=== PATIENT | male | born 1940 | race Caucasian/White ===

== ENCOUNTER 2020-06-16 15:03 | Emergency (ER) | payer MEDICARE, OTHER ==
[2020-06-16] MEDS ORDERED: Tamsulosin 0.4 MG Cap.ER PO ONE (16:19)
--- NOTE | 2020-06-16 16:19 | EDM.PDOC ---
ED HPI GENERAL MEDICAL PROBLEM - General Chief Complaint: Genitourinary Problem Stated Complaint: [facility] Time Seen by Provider: 06/16/20 16:05 Source of Information: Reports: Patient, RN Notes Reviewed History Limitations: Reports: No Limitations - History of Present Illness INITIAL COMMENTS - FREE TEXT/NARRATIVE: Patient is an 79-year-old male who presents to the ED for the evaluation of difficulty voiding and stooling. Patient states that he had back surgery, performed on June 13, he states that he was not able to void while he was in the hospital for that surgery. He notes that he was given 1 dose of Flomax, and this seemed to help him urinate. Patient notes that he does void, but dribbles just a little bit at a time, and does not feel that he is emptying completely. Patient also states that his been taking narcotic pain medications, due to the back surgery and feels like he might be getting constipated, as he has not had regular bowel movements. He also states he has not had much of an appetite. Patient has been utilizing Colace, as a stool softener, but does not seem to think that this is providing much for bowel movement either. His primary care provider is Dr. Najera. He denies any fever/chills, cough/shortness of breath, nausea/vomiting/diarrhea. Patient notes a recent prior hernia surgery as well that is healing appropriately. Lower Back Pain Score (Numeric/FACES): 2 - Related Data Allergies Allergy/AdvReac Type Severity Reaction Status Date / Time hydrocodone Allergy Hives Verified 06/16/20 15:14 Home Meds: Home Meds Tamsulosin [Tamsulosin 24 Hr] 0.4 mg PO DAILY #30 cap.er 06/16/20 [Rx] Past Medical History HEENT History: Reports: Cataract, Impaired Vision Cardiovascular History: Reports: High Cholesterol, Hypertension - Past Surgical History GI Surgical History: Reports: Hernia Repair/Other Musculoskeletal Surgical History: Reports: Knee Replacement, Other (See Below) Other Musculoskeletal Surgeries/Procedures:: lower lumbar surgery for spinal stenosis 06/13/2020 Social & Family History - Family History Family Medical History: Noncontributory - Tobacco Use Smoking Status *Q: Never Smoker Second Hand Smoke Exposure: No ED ROS GENERAL - Review of Systems Review Of Systems: Comprehensive ROS is negative, except as noted in HPI. ED EXAM, RENAL/ - Physical Exam Exam: See Below Exam Limited By: No Limitations General Appearance: Alert, WD/WN, No Apparent Distress Respiratory/Chest: No Respiratory Distress, Lungs Clear, Normal Breath Sounds, No Accessory Muscle Use, Chest Non-Tender Cardiovascular: Normal Peripheral Pulses, Regular Rate, Rhythm, No Edema, No Murmur GI/Abdominal: Normal Bowel Sounds, Soft, Non-Tender, No Distention, No Mass Extremities: Normal Inspection, Normal Capillary Refill Neurological: Alert, Oriented, Normal Cognition, No Motor/Sensory Deficits Psychiatric: Normal Affect, Normal Mood Skin Exam: Warm, Dry, Intact, Normal Color, No Rash Course - Vital Signs Last Recorded V/S: Last Vital Signs Temp 98.4 F 06/16/20 15:09 Pulse 71 06/16/20 15:09 Resp 16 06/16/20 15:09 BP 141/47 H 06/16/20 15:09 Pulse Ox 96 06/16/20 15:09 - Orders/Labs/Meds Orders: Active Orders 24 hr Category Date Time Status Bladder Scan [RC] ASDIRECTED Care 06/16/20 15:18 Active Meds: Medications Discontinued Medications Generic Name Dose Route Start Last Admin Trade Name Azarq PRN Reason Stop Dose Admin Tamsulosin HCl 0.4 mg 06/16/20 16:19 06/16/20 17:00 Flomax PO 06/16/20 16:20 0.4 mg ONETIME ONE Administration - Re-Assessments/Exams Free Text/Narrative Re-Assessment/Exam: 06/16/20 16:26 Patient's bladder scan revealed 55 mL of urine within his bladder. He will be given a dose of Flomax, to help provide a good urinary stream, a upright abdomen x-ray will be taken, to see if we can identify the stool/gas pattern, to determine whether or not he is constipated. 06/16/20 17:27 Abdomen x-ray demonstrates no increased stool throughout the colon, skin tamai are present, otherwise degenerative disc change was noted. No other acute abnormalities were appreciated. I did go over general recommendations with the and patient, they will take the Flomax, and follow-up with his primary care provider as needed. Departure - Departure Time of Disposition: 17:20 Disposition: Home, Self-Care 01 Condition: Good Clinical Impression: Urinary retention due to benign prostatic hyperplasia - Discharge Information *PRESCRIPTION DRUG MONITORING PROGRAM REVIEWED*: No *COPY OF PRESCRIPTION DRUG MONITORING REPORT IN PATIENT JUJU: No Prescriptions: Tamsulosin [Tamsulosin 24 Hr] 0.4 mg PO DAILY #30 cap.er Instructions: Acute Urinary Retention, Male, [id number] Forms: ED Department Discharge Additional Instructions: You were evaluated in the ER today regarding your inability to urinate, or have a bowel movement. Your work-up in the ER included an abdomen x-ray, and a bladder scan. You had only 55 mL of urine within your bladder, which is just a little bit than normal physiological amount for 1 hour time period. The body usually creates urine at a rate of 30 mL/h. Your abdomen x-ray demonstrated not a lot of stool within your colon, so you are not constipated. Please continue to take the stool softeners, and or a laxative at home, while you are using the narcotic pain medications for your back surgery. You were given a prescription for Flomax, please take 1 tab daily to help you urinate. You will need to follow-up with your regular provider for continuation of this medication if you find that it is helpful. Please go home and read your discharge note from your surgeon, if he does not specifically say so, you can use ibuprofen (Advil, Motrin) for pain relief. 600 mg every 6 hours should work, but do not exceed 3200 mg ibuprofen in a 24-hour time span. Please return to the ER at any time if your symptoms change or worsen. Sepsis Event Note (ED) - Evaluation Sepsis Screening Result: No Definite Risk - Focused Exam Vital Signs: Vital Signs Temp Pulse Resp BP Pulse Ox 06/16/20 15:09 98.4 F 71 16 141/47 H 96 - My Orders Last 24 Hours: My Active Orders 06/16/20 15:18 Bladder Scan [RC] ASDIRECTED - Assessment/Plan Last 24 Hours: My Active Orders 06/16/20 15:18 Bladder Scan [RC] ASDIRECTED
--- NOTE | 2020-06-16 17:25 | CR ---
Abdomen: Supine view of the abdomen was obtained. Comparison: No prior abdominal x-ray. Skin tamia are present. Degenerative change with disc space narrowing and endplate osteophytes are noted within the spine. Joint space narrowing noted within the right hip. Bowel gas pattern is normal. Vascular calcification is seen. Impression: 1. Skin tamia. 2. Other findings which are nonacute as described above. Diagnostic code #2 Study was dictated in MDT
== END 2020-06-16 17:35 | disposition home or self-care (01) ==
LOC: JD.ED 15:03
DX: N40.1 Benign prostatic hyperplasia with lower urinary tract symptoms (principal); R33.8 Other retention of urine; I10 Essential (primary) hypertension; Z88.5 Allergy status to narcotic agent; Z79.899 Other long term (current) drug therapy
CPT/HCPCS: 51798; 74018; 99284; A9270; 99283

== ENCOUNTER 2020-06-17 05:45 | Emergency (ER) | payer MEDICARE, OTHER ==
--- NOTE | 2020-06-17 07:09 | EDM.PDOC ---
ED HPI GENERAL MEDICAL PROBLEM - General Chief Complaint: Genitourinary Problem Stated Complaint: [facility] Time Seen by Provider: 06/17/20 05:50 - History of Present Illness INITIAL COMMENTS - FREE TEXT/NARRATIVE: 79-year-old male presents to the emergency room unable to void he is brought in by EMS. Patient last voided yesterday and then he dribbles a small amount this morning. Patient has a history of back surgery 4 days ago. Patient was seen here yesterday with inability to void and constipation symptoms. Patient has been using opioids following his surgery. The back surgery was for spinal stenosis. Patient also had a hernia repair roughly a month ago. Patient was noted to be mildly hypoxic upon arrival here with O2 saturation 88 to 89%. He denies chest pain chest pressure his main complaint is difficulty voiding and just feels poorly. He has had some constipation however yesterday his x-rays looked okay. Back Pain Score (Numeric/FACES): 3 - Related Data Allergies Allergy/AdvReac Type Severity Reaction Status Date / Time hydrocodone Allergy Severe Hives Verified 06/17/20 05:51 Home Meds: Home Meds Tamsulosin [Tamsulosin 24 Hr] 0.4 mg PO DAILY #30 cap.er 06/16/20 [Rx] Past Medical History HEENT History: Reports: Cataract, Impaired Vision Cardiovascular History: Reports: High Cholesterol, Hypertension - Past Surgical History GI Surgical History: Reports: Hernia Repair/Other Musculoskeletal Surgical History: Reports: Knee Replacement, Other (See Below) Other Musculoskeletal Surgeries/Procedures:: lower lumbar surgery for spinal stenosis 06/13/2020 Social & Family History - Family History Family Medical History: Noncontributory - Tobacco Use Smoking Status *Q: Former Smoker Used Tobacco, but Quit: Yes Month/Year Tobacco Last Used: many years ago - Caffeine Use Caffeine Use: Reports: Coffee - Recreational Drug Use Recreational Drug Use: No ED ROS GENERAL - Review of Systems Review Of Systems: See Below Constitutional: Reports: Weakness, Fatigue HEENT: Reports: No Symptoms Respiratory: Reports: No Symptoms. Denies: Cough, Sputum Cardiovascular: Reports: No Symptoms GI/Abdominal: Reports: Abdominal Pain (Some mild abdominal pain in the area of his hernia repair) : Reports: Urinary Retention Musculoskeletal: Reports: Back Pain Skin: Reports: No Symptoms Neurological: Reports: No Symptoms Hematologic/Lymphatic: Reports: No Symptoms Immunologic: Reports: No Symptoms ED EXAM, RENAL/ - Physical Exam Exam: See Below Exam Limited By: No Limitations General Appearance: Alert, No Apparent Distress Head: Atraumatic, Normocephalic Neck: Normal Inspection, Supple, Non-Tender, Full Range of Motion. No: Lymphadenopathy (L), Lymphadenopathy (R) Respiratory/Chest: No Respiratory Distress, Lungs Clear, Normal Breath Sounds Cardiovascular: Regular Rate, Rhythm, No Edema, No Murmur GI/Abdominal: Normal Bowel Sounds, Soft, Other (Mild tenderness in the left lower quadrant near the incision for his hernia that appears to be healing well) Back Exam: Other (General looks good he had a dressing over his drain site I went ahead and remove this the site is not draining at all he had a small amount of drainage that is old and dry on his bandage this was placed Wednesday after the drain was removed.). No: CVA Tenderness (L), CVA Tenderness (R) Extremities: Normal Inspection Neurological: Slow to Respond, Other (Not certain what his baseline is) Skin Exam: Warm, Dry, Intact EKG INTERPRETATION EKG Date: 06/17/20 Rhythm: NSR [place]: Normal P-Wave: Present QRS: Normal ST-T: Normal QT: Normal Comparison: NA - No Prior EKG EKG Interpretation Comments: Abnormal EKG nonacute Course - Vital Signs Last Recorded V/S: Last Vital Signs Temp 37.2 C 06/17/20 05:48 Pulse 90 06/17/20 05:48 Resp 20 06/17/20 05:48 BP 166/55 H 06/17/20 05:48 Pulse Ox 89 L 06/17/20 05:48 - Orders/Labs/Meds Orders: Active Orders 24 hr Category Date Time Status EKG Documentation Completion [RC] STAT Care 06/17/20 06:47 Active CORONAVIRUS COVID-19 RAPID [MOLEC] Stat Lab 06/17/20 08:34 Received Sodium Chloride 0.9% [Normal Saline] 1,000 ml Med 06/17/20 08:00 Active IV ASDIRECTED Medication Orders Sodium Chloride (Normal Saline) 1,000 mls @ 125 mls/hr IV ASDIRECTED RALPH Labs: Laboratory Tests 06/17/20 06/17/20 06/17/20 Range/Units 05:55 07:00 07:00 WBC (4.23-9.07) K/mm3 RBC (4.63-6.08) M/mm3 Hgb (13.7-17.5) gm/dl Hct (40.1-51.0) % MCV (79.0-92.2) fl MCH (25.7-32.2) pg MCHC (32.2-35.5) g/dl RDW Std Deviation (35.1-43.9) fL Plt Count (163-337) K/mm3 MPV (9.4-12.3) fl Neut % (Auto) (34.0-67.9) % Lymph % (Auto) (21.8-53.1) % [place] % (Auto) (5.3-12.2) % Eos % (Auto) (0.8-7.0) Baso % (Auto) (0.1-1.2) % Neut # (Auto) (1.78-5.38) K/mm3 Lymph # (Auto) (1.32-3.57) K/mm3 [place] # (Auto) (0.30-0.82) K/mm3 Eos # (Auto) (0.04-0.54) K/mm3 Baso # (Auto) (0.01-0.08) K/mm3 Manual Slide Review PT (9.7-12.0) SECONDS INR APTT (22-31) SECONDS D-Dimer, Quantitative 1.12 H (0.19-0.50) mg/L Sodium 134 L (136-145) mEq/L Potassium 4.2 (3.5-5.1) mEq/L Chloride 99 (98-107) mEq/L Carbon Dioxide 25 (21-32) mEq/L Anion Gap 14.2 (5-15) BUN 43 H (7-18) mg/dL Creatinine 1.9 H (0.7-1.3) mg/dL Est Cr Clr Drug Dosing 29.34 mL/min Estimated GFR (MDRD) 34 (>60) mL/min BUN/Creatinine Ratio 22.6 H (14-18) Glucose 159 H (83-115) mg/dL Calcium 8.6 (8.5-10.1) mg/dL Total Bilirubin 0.6 (0.2-1.0) mg/dL AST 21 (15-37) U/L ALT 13 L (16-63) U/L Alkaline Phosphatase 69 (46-116) U/L Troponin I (0.00-0.056) ng/mL Total Protein 6.2 L (6.4-8.2) g/dl Albumin 2.3 L (3.4-5.0) g/dl Globulin 3.9 gm/dL Albumin/Globulin Ratio 0.6 L (1-2) Urine Color Yellow (Yellow) Urine Appearance Slt cloudy H (Clear) Urine pH 5.5 (5.0-8.0) Ur Specific [place] 1.025 (1.005-1.030) Urine Protein 2+ H (Negative) Urine Glucose (UA) Negative (Negative) Urine Ketones Trace H (Negative) Urine Occult Blood Negative (Negative) Urine Nitrite Negative (Negative) Urine Bilirubin Negative (Negative) Urine Urobilinogen 0.2 (0.2-1.0) Ur Leukocyte Esterase Negative (Negative) U Hyaline Cast (Auto) 5-10 H (0-5) /lpf Urine RBC Not seen (0-5) /hpf Urine WBC Not seen (0-5) /hpf Ur Transition Epith Cell 0-5 (0-5) Amorphous Sediment Many H (NOT SEEN) /hpf Urine Bacteria Few (FEW) /hpf Urine Mucus Moderate H (FEW) /hpf 06/17/20 06/17/20 06/17/20 Range/Units 07:00 07:00 07:00 WBC 8.58 (4.23-9.07) K/mm3 RBC 2.59 L (4.63-6.08) M/mm3 Hgb 8.2 L (13.7-17.5) gm/dl Hct 26.2 L (40.1-51.0) % MCV 101.2 H (79.0-92.2) fl MCH 31.7 (25.7-32.2) pg MCHC 31.3 L (32.2-35.5) g/dl RDW Std Deviation 50.5 H (35.1-43.9) fL Plt Count 223 (163-337) K/mm3 MPV 8.4 L (9.4-12.3) fl Neut % (Auto) 64.3 (34.0-67.9) % Lymph % (Auto) 17.4 L (21.8-53.1) % [place] % (Auto) 16.3 H (5.3-12.2) % Eos % (Auto) 1.7 (0.8-7.0) Baso % (Auto) 0.2 (0.1-1.2) % Neut # (Auto) 5.51 H (1.78-5.38) K/mm3 Lymph # (Auto) 1.49 (1.32-3.57) K/mm3 [place] # (Auto) 1.40 H (0.30-0.82) K/mm3 Eos # (Auto) 0.15 (0.04-0.54) K/mm3 Baso # (Auto) 0.02 (0.01-0.08) K/mm3 Manual Slide Review Abnormal smear PT 10.8 (9.7-12.0) SECONDS INR 1.01 APTT 30 (22-31) SECONDS D-Dimer, Quantitative (0.19-0.50) mg/L Sodium (136-145) mEq/L Potassium (3.5-5.1) mEq/L Chloride (98-107) mEq/L Carbon Dioxide (21-32) mEq/L Anion Gap (5-15) BUN (7-18) mg/dL Creatinine (0.7-1.3) mg/dL Est Cr Clr Drug Dosing mL/min Estimated GFR (MDRD) (>60) mL/min BUN/Creatinine Ratio (14-18) Glucose (83-115) mg/dL Calcium (8.5-10.1) mg/dL Total Bilirubin (0.2-1.0) mg/dL AST (15-37) U/L ALT (16-63) U/L Alkaline Phosphatase (46-116) U/L Troponin I < 0.017 (0.00-0.056) ng/mL Total Protein (6.4-8.2) g/dl Albumin (3.4-5.0) g/dl Globulin gm/dL Albumin/Globulin Ratio (1-2) Urine Color (Yellow) Urine Appearance (Clear) Urine pH (5.0-8.0) Ur Specific [place] (1.005-1.030) Urine Protein (Negative) Urine Glucose (UA) (Negative) Urine Ketones (Negative) Urine Occult Blood (Negative) Urine Nitrite (Negative) Urine Bilirubin (Negative) Urine Urobilinogen (0.2-1.0) Ur Leukocyte Esterase (Negative) U Hyaline Cast (Auto) (0-5) /lpf Urine RBC (0-5) /hpf Urine WBC (0-5) /hpf Ur Transition Epith Cell (0-5) Amorphous Sediment (NOT SEEN) /hpf Urine Bacteria (FEW) /hpf Urine Mucus (FEW) /hpf Meds: Medications Generic Name Dose Route Start Last Admin Trade Name Freq PRN Reason Stop Dose Admin Sodium Chloride 1,000 mls @ 125 mls/hr 06/17/20 08:00 Normal Saline IV ASDIRECTED RALPH Discontinued Medications Generic Name Dose Route Start Last Admin Trade Name Freq PRN Reason Stop Dose Admin Sodium Chloride 500 mls @ 999 mls/hr 06/17/20 07:53 06/17/20 08:23 Normal Saline IV 06/17/20 08:23 999 mls/hr .BOLUS ONE Administration - Re-Assessments/Exams Free Text/Narrative Re-Assessment/Exam: 06/17/20 08:04 Case was reviewed with Dr. Garcia who recommends patient be sent back to his facility where he had the surgery as he cannot exclude his urinary retention is not secondary to the surgery. I have called 1 call at [facility] we cannot get a hold of the surgeon we will discuss this with the hospitalist they will call me back. 06/17/20 09:04 Dr. Alves, the neurosurgeon, did get back to me and agreed that the patient should come over to [facility]. The hospitalist Dr. Zaragoza also did get back to me and is happy to accept the patient. However, prior to transfer they would like to know his COVID status but they have a bed for him either way. Did discuss the disposition with him. We will run fluids at this point we both agree that the positive d-dimer is most likely related to this postop status. Over all this gentleman's course is 1 of a gentleman that is several days postop he has been home for 2 days and is not doing very well his is having difficulty caring for him he is developing worsening renal function most likely due to prerenal causes. The patient just does not have the strength to move around, and his does not have the strength to move him adequately. He is noted to be hypoxic but very mildly so this is probably related to needing incentive spirometry decreased activity and not taking adequate breath volumes. He may very well need short-term assisted placement to get back on his feet, and to ensure reasonable rehabilitation. Departure - Departure Time of Disposition: 09:12 Disposition: DC/[facility]fer to [facility] 02 Clinical Impression: Weakness, Acute prerenal azotemia, Postoperative state - Discharge Information Referrals: PCP,None [Ordering Only Provider] - Forms: ED Department Discharge Sepsis Event Note (ED) - Evaluation Sepsis Screening Result: No Definite Risk - Focused Exam Vital Signs: Vital Signs Temp Pulse Resp BP Pulse Ox 06/17/20 05:48 37.2 C 90 20 166/55 H 89 L - My Orders Last 24 Hours: My Active Orders 06/17/20 06:47 EKG Documentation Completion [RC] STAT 06/17/20 08:00 Sodium Chloride 0.9% [Normal Saline] 1,000 ml IV ASDIRECTED 06/17/20 08:34 CORONAVIRUS COVID-19 RAPID [MOLEC] Stat - Assessment/Plan Last 24 Hours: My Active Orders 06/17/20 06:47 EKG Documentation Completion [RC] STAT 06/17/20 08:00 Sodium Chloride 0.9% [Normal Saline] 1,000 ml IV ASDIRECTED 06/17/20 08:34 CORONAVIRUS COVID-19 RAPID [MOLEC] Stat
--- NOTE | 2020-06-17 07:32 | CR ---
Chest: Portable view of the chest was obtained. Comparison: Prior chest x-ray is not available. Heart size is within normal limits for portable technique. Tortuous thoracic aorta is seen. Widening of the upper mediastinum is seen. Minimal atelectasis within the right lung base is seen. Lungs otherwise are clear. Old healed left-sided rib fractures are noted. Osteopenia is also present within the osseous structures. Impression: 1. Findings as noted above. 2. Nothing acute is suspected. Diagnostic code #2 This report was dictated in MDT
[2020-06-17] MEDS ORDERED: Sodium Chloride 0.9% 500 ML IV ONE (07:53)
[2020-06-17] MEDS ORDERED: Sodium Chloride 0.9% 1,000 ML IV SCH (08:00)
[2020-06-17] MEDS ORDERED: HYDROmorphone 0.5 MG/0.5 ML Syringe IVPUSH STA (10:40)
== END 2020-06-17 11:05 ==
LOC: JD.ED 05:45
DX: R53.1 Weakness (principal); R79.89 Other specified abnormal findings of blood chemistry; I10 Essential (primary) hypertension; R94.31 Abnormal electrocardiogram [ECG] [EKG]; Z88.5 Allergy status to narcotic agent; Z87.891 Personal history of nicotine dependence; Z98.890 Other specified postprocedural states; Z20.828 Contact with and (suspected) exposure to other viral communicable diseases
CPT/HCPCS: 36415; 51702; 51798; 71045; 80053; 81001; 84484; 85025; 85379; 85610; 85730; 93005; 96374; 99285; J1170; J7030; U0002; 93010

== ENCOUNTER 2020-06-23 10:10 | Inpatient (IN) | payer MEDICARE, OTHER ==
[2020-06-23] MEDS ORDERED: Acetaminophen 325 MG Tab PO ONE (10:43)
--- NOTE | 2020-06-23 10:48 | EDM.PDOC ---
ED HPI GENERAL MEDICAL PROBLEM - General Chief Complaint: Genitourinary Problem Stated Complaint: urinary complaint Time Seen by Provider: 06/23/20 10:42 Source of Information: Reports: Patient History Limitations: Reports: No Limitations - History of Present Illness INITIAL COMMENTS - FREE TEXT/NARRATIVE: 79-year-old male presents to the ED with chief complaint of just generally not feeling well. He had lower back surgery performed June 13 for spinal stenosis. He states the pain is slowly getting better in his lower back and is using about 2 pain pills a day. Unfortunately a few days after surgery he went into urinary retention required Brownlee catheter placement on June 17. Brownlee catheter remains in place and has been causing a good deal of irritation of the penis and the urethra. Nurses identified that the Brownlee catheter was pulled upwards and above his and waistband putting undue pressure on the penis causing him discomfort and pain. Brownlee catheter was subsequently we readjusted to his right leg and the leg bag will be down on his right lower calf. Patient always identified however in the ED to be febrile with a temperature of 38 degrees. He also gives a history of anorexia and not eating much at all for the last couple of days. He denies any chills. Mild nausea. Feeling lightheaded a bit when he stood up from bed this morning. He has bowels did work a little bit this morning. He has been having troubles with constipation postoperatively while on narcotic pain medication. He denies cough or sputum production. He has had no visitors that could have potentially expose him to COVID. COVID exposure would have occurred while he was in hospital. Urine in the bag does appear cloudy. He does feel dehydrated. Onset: Gradual Onset Date: 06/22/20 (More or less started to feel unwell yesterday.) Duration: Day(s):, Getting Worse Location: Reports: Generalized (Generalized weakness. Loss of appetite) Quality: Reports: Other Severity: Moderate (Generalized weakness) Improves with: Reports: Rest Worsens with: Reports: Other (Feels much worse with movement and getting up. This will cause dyspnea lightheadedness) Context: Reports: Other (He is today 10 days postop L spine surgery for spinal stenosis. He has a Brownlee catheter in place for the last 7 days. This because of development of urinary retention postoperatively.). Denies: Activity (.), Exercise, Lifting, Sick Contact, Trauma Associated Symptoms: Reports: Fever/Chills, Loss of Appetite, Malaise, Nausea/Vomiting, Weakness (Generalized.). Denies: Confusion, Chest Pain, Cough, cough w sputum, Diaphoresis, Headaches, Rash, Seizure, Shortness of Breath, Syncope Treatments [employer]: Reports: Other (see below) (Only prescribed medications.) Penis Pain Score (Numeric/FACES): 8 - Related Data Allergies Allergy/AdvReac Type Severity Reaction Status Date / Time hydrocodone Allergy Severe Hives Verified 06/23/20 10:18 Home Meds: Home Meds Tamsulosin [Tamsulosin 24 Hr] 0.4 mg PO DAILY #30 cap.er 06/16/20 [Rx] Docusate Sodium [Colace] 0 mg PO ASDIRECTED PRN 06/23/20 [History] Fluticasone Propionate 1 spray NASBOTH ASDIRECTED PRN 06/23/20 [History] Levothyroxine 75 mcg PO DAILY 06/23/20 [History] Losartan Potassium 50 mg PO DAILY 06/23/20 [History] Metoprolol Tartrate 100 mg PO BID 06/23/20 [History] Pravastatin [Pravachol] 40 mg PO DAILY 06/23/20 [History] allopurinoL [Zyloprim] 150 mg PO DAILY 06/23/20 [History] amLODIPine [Norvasc] 5 mg PO DAILY 06/23/20 [History] hydroCHLOROthiazide [Hydrochlorothiazide] 25 mg PO DAILY 06/23/20 [History] metFORMIN [Glucophage] 1,000 mg PO BID 06/23/20 [History] oxyCODONE 5 mg PO ASDIRECTED PRN 06/23/20 [History] Past Medical History HEENT History: Reports: Cataract, Impaired Vision Cardiovascular History: Reports: High Cholesterol, Hypertension Genitourinary History: Reports: BPH, Retention, Urinary Psychiatric History: Reports: Depression Endocrine/Metabolic History: Reports: Diabetes, Type II Oncologic (Cancer) History: Reports: Other (See Below) Other Oncologic History: skin CA Dermatologic History: Reports: Other (See Below) Other Dermatologic History: skin CA - Infectious Disease History Infectious Disease History: Reports: Chicken Pox, Measles, Rubella - Past Surgical History GI Surgical History: Reports: Hernia Repair/Other Musculoskeletal Surgical History: Reports: Knee Replacement, Other (See Below) Other Musculoskeletal Surgeries/Procedures:: lower lumbar surgery for spinal stenosis 06/13/2020 Social & Family History - Family History Family Medical History: Noncontributory - Tobacco Use Smoking Status *Q: Never Smoker Second Hand Smoke Exposure: No - Caffeine Use Caffeine Use: Reports: Coffee - Alcohol Use Days Per Week of Alcohol Use: 7 Number of Drinks Per Day: 2 Total Drinks Per Week: 14 - Recreational Drug Use Recreational Drug Use: No - Living Situation & Occupation Living situation: Reports: , with Family Occupation: Retired ED ROS GENERAL - Review of Systems Review Of Systems: See Below Constitutional: Reports: Fever, Malaise, Weakness, Fatigue, Decreased Appetite, Weight Loss HEENT: Reports: Glasses Respiratory: Reports: Shortness of Breath. Denies: Wheezing (On exertion only), Pleuritic Chest Pain, Cough, Sputum, Hemoptysis Cardiovascular: Reports: Blood Pressure Problem, Dyspnea on Exertion (Particular the last few days.), Lightheadedness. Denies: Claudication, Edema (With standing at times.), Orthopnea Endocrine: Reports: Fatigue GI/Abdominal: Reports: Abdominal Pain (Remittent lower abdominal pressure discomfort with a few cramps.), Constipation, Decreased Appetite, Nausea. Denies: Hematemesis, Hematochezia, Stool Incontinence (Comes and goes.), Vomiting : Reports: Other (Brownlee catheter was placed due to acute urinary tension I believe June 16.) Musculoskeletal: Reports: Back Pain (Knees hips neck and shoulders at times. Back pain surgery done 10 days ago due to severe spinal stenosis with relief of lower extremity pain.), Joint Pain Skin: Reports: No Symptoms Neurological: Reports: Dizziness (Standing.), Difficulty Walking (Walking with the aid of a walker.) Psychiatric: Reports: No Symptoms Hematologic/Lymphatic: Reports: No Symptoms Immunologic: Reports: No Symptoms ED EXAM, GENERAL - Physical Exam Exam: See Below Exam Limited By: No Limitations General Appearance: Alert, WD/WN, Mild Distress, Other (Patient appears ill. He is quite warm to palpation nurses recorded temperature at 38 degrees and he feels like slightly warmer than this. Heart rate was 78 and sinus respiratory to 16 with O2 sats of 92% on room air. He was placed on 2 L of oxygen by nasal cannula. BP 147/52.) Eye Exam: Bilateral Eye: Normal Inspection, PERRL Throat/Mouth: Normal Inspection, Normal Oropharynx, Other (Tongue is dry and beefy red in color.) Head: Atraumatic, Normocephalic Neck: No: Carotid Bruit, Lymphadenopathy (L), Lymphadenopathy (R) Respiratory/Chest: No Respiratory Distress, Lungs Clear, Normal Breath Sounds, No Accessory Muscle Use Cardiovascular: Regular Rate, Rhythm, No Edema, No Gallop, No Murmur, No Rub. No: Normal Peripheral Pulses Peripheral Pulses: 2+: Carotid (L), Carotid (R), Posterior Tibial (L), Posterior Tibial (R), Dorsalis Pedis (L), Dorsalis Pedis (R) GI/Abdominal: Soft, Non-Tender, No Organomegaly, Distended (Bowel sounds are slightly hyperactive in all 4 quadrants. Upper abdomen is mildly distended and tympanitic to percussion compatible with aerophagia.), Abnormal Bowel Sounds, Other (He has a linear horizontal incision just to the left of the midline lower abdomen where he had a hernia repaired.) (Male) Exam: Other (Brownlee catheter in position. The end of the penis did not look red or excoriated. No blood appreciated) Back Exam: Other (Patient does have tamia in his midline lower lumbar surgery wound. The wound itself appears to be healing very well with no signs of infection.) Extremities: Normal Inspection, No Pedal Edema Neurological: Alert, Oriented, CN II-XII Intact, Normal Cognition. No: Normal Gait Psychiatric: Flat Affect Skin Exam: Warm, Dry, Intact, Normal Color EKG INTERPRETATION EKG Date: 06/23/20 Time: 11:14 Rhythm: NSR Rate (Beats/Min): 78 Palmer: Normal P-Wave: Present (First-degree AV block.) QRS: Other (There is an RSR prime wave in V1 suggesting right bundle branch block pattern. There is early R wave transition in V2 V3 suggesting right ventricular hypertrophy pattern. Mildly decreased voltage in the limb leads.) QT: Prolonged (Mildly prolonged.) EKG Interpretation Comments: Abnormal ECG Course - Vital Signs Last Recorded V/S: Last Vital Signs Temp 38.0 C 06/23/20 10:10 Pulse 78 06/23/20 10:10 Resp 16 06/23/20 10:10 BP 147/52 H 06/23/20 10:10 Pulse Ox 92 L 06/23/20 10:10 - Orders/Labs/Meds Orders: Active Orders 24 hr Category Date Time Status EKG Documentation Completion [RC] STAT Care 06/23/20 10:44 Active Oxygen Therapy [RC] ASDIRECTED Care 06/23/20 10:50 Active Remove Brownlee Catheter [Urinary Catheter Removal] [RC] Care 06/23/20 12:05 Active PER UNIT ROUTINE Abdomen 1V Flat [CR] Stat Exams 06/23/20 10:53 Taken Chest 1V Frontal [CR] Stat Exams 06/23/20 10:44 Taken CULTURE BLOOD [BC] Stat Lab 06/23/20 10:58 Received CULTURE BLOOD [BC] Stat Lab 06/23/20 11:10 Received CULTURE CATHETER TIP [RM] Stat Lab 06/23/20 12:29 Ordered CULTURE URINE [RM] Stat Lab 06/23/20 11:41 Ordered Dextrose 5%-0.9% NaCl [Dextrose 5%-Normal Saline] 1,000 Med 06/23/20 10:45 Active ml IV ASDIRECTED cefTRIAXone [Rocephin] 2 gm Med 06/23/20 11:45 Active Sodium Chloride 0.9% [Normal Saline] 100 ml IV Q24H Blood Culture x2 Reflex Set [OM.PC] Stat Oth 06/23/20 10:45 Ordered Medication Orders Dextrose/Sodium Chloride (Dextrose 5%-Normal Saline) 1,000 mls @ 250 mls/hr IV ASDIRECTED [facility] Last Admin: 06/23/20 12:27 Dose: 250 mls/hr Documented by: FIOR Ceftriaxone Sodium 2 gm/ (Sodium Chloride) 100 mls @ 200 mls/hr IV Q24H [facility] Last Admin: 06/23/20 12:28 Dose: 200 mls/hr Documented by: FIOR Labs: Laboratory Tests 06/23/20 06/23/20 06/23/20 Range/Units 10:33 10:58 10:58 WBC 15.41 H (4.23-9.07) K/mm3 RBC 2.72 L (4.63-6.08) M/mm3 Hgb 8.5 L (13.7-17.5) gm/dl Hct 27.4 L (40.1-51.0) % MCV 100.7 H (79.0-92.2) fl MCH 31.3 (25.7-32.2) pg MCHC 31.0 L (32.2-35.5) g/dl RDW Std Deviation 49.1 H (35.1-43.9) fL Plt Count 442 H D (163-337) K/mm3 MPV 8.2 L (9.4-12.3) fl Neutrophils % (Manual) 79 H (40-60) % Band Neutrophils % 0 (0-10) % Lymphocytes % (Manual) 12 L (20-40) % Atypical Lymphs % 0 % Monocytes % (Manual) 8 (2-10) % Eosinophils % (Manual) 1 (0.8-7.0) % Basophils % (Manual) 0 L (0.2-1.2) Platelet Estimate Adequate Poikilocytosis 1+ slight Anisocytosis 1+ slight Macrocytosis 2+ moderate RBC Morph Comment Abnormal Sodium 132 L (136-145) mEq/L Potassium 4.2 (3.5-5.1) mEq/L Chloride 97 L (98-107) mEq/L Carbon Dioxide 28 (21-32) mEq/L Anion Gap 11.2 (5-15) BUN 45 H (7-18) mg/dL Creatinine 1.6 H (0.7-1.3) mg/dL Est Cr Clr Drug Dosing 34.85 mL/min Estimated GFR (MDRD) 42 (>60) mL/min BUN/Creatinine Ratio 28.1 H (14-18) Glucose 232 H (83-115) mg/dL Lactic Acid (0.4-2.0) mmol/L Calcium 8.5 (8.5-10.1) mg/dL Magnesium 1.9 (1.8-2.4) mg/dl Total Bilirubin 0.8 (0.2-1.0) mg/dL AST 24 (15-37) U/L ALT 28 (16-63) U/L Alkaline Phosphatase 201 H (46-116) U/L Troponin I < 0.017 (0.00-0.056) ng/mL C-Reactive Protein 14.4 H* (<1.0) mg/dL NT-Pro-B Natriuret Pep (0-450) pg/mL Total Protein 6.9 (6.4-8.2) g/dl Albumin 2.3 L (3.4-5.0) g/dl Globulin 4.6 gm/dL Albumin/Globulin Ratio 0.5 L (1-2) Urine Color Yellow (Yellow) Urine Appearance Slt cloudy H (Clear) Urine pH 5.5 (5.0-8.0) Ur Specific [place] 1.020 (1.005-1.030) Urine Protein 2+ H (Negative) Urine Glucose (UA) Negative (Negative) Urine Ketones Negative (Negative) Urine Occult Blood 2+ H (Negative) Urine Nitrite Negative (Negative) Urine Bilirubin Negative (Negative) Urine Urobilinogen 4.0 H (0.2-1.0) Ur Leukocyte Esterase 3+ H (Negative) Urine RBC 30-40 H (0-5) /hpf Urine WBC >100 H (0-5) /hpf Ur Squamous Epith Cells 0-5 (0-5) /hpf Urine Bacteria Few (FEW) /hpf Urine Mucus Not seen (FEW) /hpf COVID-19 (HANNY) (NEGATIVE) 06/23/20 06/23/20 06/23/20 Range/Units 10:58 10:58 11:20 WBC (4.23-9.07) K/mm3 RBC (4.63-6.08) M/mm3 Hgb (13.7-17.5) gm/dl Hct (40.1-51.0) % MCV (79.0-92.2) fl MCH (25.7-32.2) pg MCHC (32.2-35.5) g/dl RDW Std Deviation (35.1-43.9) fL Plt Count (163-337) K/mm3 MPV (9.4-12.3) fl Neutrophils % (Manual) (40-60) % Band Neutrophils % (0-10) % Lymphocytes % (Manual) (20-40) % Atypical Lymphs % % Monocytes % (Manual) (2-10) % Eosinophils % (Manual) (0.8-7.0) % Basophils % (Manual) (0.2-1.2) Platelet Estimate Poikilocytosis Anisocytosis Macrocytosis RBC Morph Comment Sodium (136-145) mEq/L Potassium (3.5-5.1) mEq/L Chloride (98-107) mEq/L Carbon Dioxide (21-32) mEq/L Anion Gap (5-15) BUN (7-18) mg/dL Creatinine (0.7-1.3) mg/dL Est Cr Clr Drug Dosing mL/min Estimated GFR (MDRD) (>60) mL/min BUN/Creatinine Ratio (14-18) Glucose (83-115) mg/dL Lactic Acid 1.1 (0.4-2.0) mmol/L Calcium (8.5-10.1) mg/dL Magnesium (1.8-2.4) mg/dl Total Bilirubin (0.2-1.0) mg/dL AST (15-37) U/L ALT (16-63) U/L Alkaline Phosphatase (46-116) U/L Troponin I (0.00-0.056) ng/mL C-Reactive Protein (<1.0) mg/dL NT-Pro-B Natriuret Pep 1153 H (0-450) pg/mL Total Protein (6.4-8.2) g/dl Albumin (3.4-5.0) g/dl Globulin gm/dL Albumin/Globulin Ratio (1-2) Urine Color (Yellow) Urine Appearance (Clear) Urine pH (5.0-8.0) Ur Specific [place] (1.005-1.030) Urine Protein (Negative) Urine Glucose (UA) (Negative) Urine Ketones (Negative) Urine Occult Blood (Negative) Urine Nitrite (Negative) Urine Bilirubin (Negative) Urine Urobilinogen (0.2-1.0) Ur Leukocyte Esterase (Negative) Urine RBC (0-5) /hpf Urine WBC (0-5) /hpf Ur Squamous Epith Cells (0-5) /hpf Urine Bacteria (FEW) /hpf Urine Mucus (FEW) /hpf COVID-19 (HANNY) Negative (NEGATIVE) Meds: Medications Generic Name Dose Route Start Last Admin Trade Name Freq PRN Reason Stop Dose Admin Dextrose/Sodium Chloride 1,000 mls @ 250 mls/hr 06/23/20 10:45 06/23/20 12:27 Dextrose 5%-Normal Saline IV 250 mls/hr ASDIRECTED RALPH Administration Ceftriaxone Sodium 2 gm/ 100 mls @ 200 mls/hr 06/23/20 11:45 06/23/20 12:28 Sodium Chloride IV 200 mls/hr Q24H RALPH Administration Discontinued Medications Generic Name Dose Route Start Last Admin Trade Name Freq PRN Reason Stop Dose Admin Acetaminophen 650 mg 06/23/20 10:43 Tylenol PO 06/23/20 10:44 ONETIME ONE Ondansetron HCl 4 mg 06/23/20 11:06 Zofran IVPUSH 06/23/20 11:07 ONETIME ONE - Radiology Interpretation Free Text/Narrative:: 79-year-old male presents to the ED generally not feeling well for the last few days. Patient underwent lumbar spine surgery for relief of spinal stenosis on June 13 in [place]. 2 days later he went into urinary retention and required Brownlee catheter placement. He came to the ED today mostly because of penile discomfort and was found to have his Brownlee catheter pulled upwards over the waist of his pants putting undue pressure on the end of the penis. Brownlee catheter was readjusted and taped to his right leg and then to a leg bag. The urine does appear quite cloudy in appearance. Patient was identified to be febrile with a temperature of 38 degrees and feels slightly warmer than that. He has loss of his appetite. He has been struggling with constipation issues even though he has cut back his pain medicine to twice daily. Concern therefore is possible urinary tract sepsis developing. Septic work-up will be completed. He will have a chest x-ray and 1 view of the abdomen performed to see how extensive his constipation problems are. He has been taking stool softeners but has not been taking MiraLAX powder. He was given Tylenol 650 mg orally for fever relief. We will provide him with Zofran 4 mg IV for nausea relief. IV will be D5 normal saline at 250 mils per hour. - Re-Assessments/Exams Free Text/Narrative Re-Assessment/Exam: 06/23/20 11:39 White count is elevated at 15.41 with a left shift of 79% neutrophils no bands cells reported. Hemoglobin is low at 8.5 with hematocrit of 27.4. MCV is mildly elevated 100.7. Platelet counts 442,000 slightly elevated. The micro shows 1+ poikilocytosis and 1+ anisocytosis and 2+ macrocytosis. Urinalysis shows it to be out a yellow with 2+ proteinuria 2+ occult blood 4+ urobilinogen 3+ leukocyte esterase and 30-40 RBCs per per field and greater than 100 white blood cells per high-power field. Few bacteria seen. Urine culture will be ordered. 06/23/20 11:44 x-ray reveals hyperinflated lung sauer with loss of much of vascular pattern. No pneumothorax identified no pleural effusions. Cardiac silhouette is within normal limits. X-ray of the abdomen shows scattered stool throughout the colon and mixture of air. There is a small bolus of stool at the hepatic flexure and some in the rectal vault. Not felt to be excessive. 06/23/20 12:01 Sodium is 132 with a potassium of 4.2. Chloride is 97 with a bicarb of 28. Anion gap is 11.2. BUN is elevated at 45 with a creatinine of 1.6. GFR is 42 stage III chronic kidney disease. BUN/creatinine ratio is elevated at 28.1. Glucose is 232 lactic acid is 1.1. Calcium is 8.5 magnesium is 1.9. Bilirubin is 0.8 with an AST of 24 and ALT of 28. Alk phosphatase is elevated at 201 troponin I is less than 0.017. C-reactive protein is markedly elevated at 14.4. Total protein is 6.9 with an albumin fraction of 2.3. 06/23/20 12:11 Brownlee catheter to be removed. We will see if he can void on his own volition. It appears the Brownlee catheter was placed when he went back to [facility] in [place] on June 17 and did see his neurosurgeon Dr. Alves Patient cannot remember if there was any difficulties inserting the F oley catheter. He does not void on his own in the next 8 hours he will require replacement of Brownlee catheter. I will discuss the case with on-call hospitalist Dr. Marie with a view to admission to the hospital for urinary tract infection/pyelonephritis Free Text/Narrative Re-Assessment/Exam: 06/23/20 12:30 Dr. Marie is here and seeing the patient in consultation. Plan will be to admit him to the [facility] med surgery floor. Departure - Departure Time of Disposition: 12:32 Disposition: Admitted As Inpatient 64 Condition: Fair Clinical Impression: Upper urinary tract infection, Postoperative pain after spinal surgery, Constipation by delayed colonic transit, Postprocedural urinary retention - Discharge Information *PRESCRIPTION DRUG MONITORING PROGRAM REVIEWED*: Not Applicable *COPY OF PRESCRIPTION DRUG MONITORING REPORT IN PATIENT JUJU: Not Applicable Referrals: Charanjit Najera MD [Primary Care Provider] - Forms: ED Department Discharge Sepsis Event Note (ED) - Evaluation Sepsis Screening Result: No Definite Risk - Focused Exam Vital Signs: Vital Signs Temp Pulse Resp BP Pulse Ox 06/23/20 10:10 38.0 C 78 16 147/52 H 92 L - My Orders Last 24 Hours: My Active Orders 06/23/20 10:44 EKG Documentation Completion [RC] STAT Chest 1V Frontal [CR] Stat 06/23/20 10:45 Dextrose 5%-0.9% NaCl [Dextrose 5%-Normal Saline] 1,000 ml IV ASDIRECTED Blood Culture x2 Reflex Set [OM.PC] Stat 06/23/20 10:50 Oxygen Therapy [RC] ASDIRECTED 06/23/20 10:53 Abdomen 1V Flat [CR] Stat 06/23/20 10:58 CULTURE BLOOD [BC] Stat 06/23/20 11:10 CULTURE BLOOD [BC] Stat 06/23/20 11:41 CULTURE URINE [RM] Stat 06/23/20 11:45 cefTRIAXone [Rocephin] 2 gm Sodium Chloride 0.9% [Normal Saline] 100 ml IV Q24H 06/23/20 12:05 Remove Brownlee Catheter [Urinary Catheter Removal] [RC] PER UNIT ROUTINE 06/23/20 12:29 CULTURE CATHETER TIP [RM] Stat - Assessment/Plan Last 24 Hours: My Active Orders 06/23/20 10:44 EKG Documentation Completion [RC] STAT Chest 1V Frontal [CR] Stat 06/23/20 10:45 Dextrose 5%-0.9% NaCl [Dextrose 5%-Normal Saline] 1,000 ml IV ASDIRECTED Blood Culture x2 Reflex Set [OM.PC] Stat 06/23/20 10:50 Oxygen Therapy [RC] ASDIRECTED 06/23/20 10:53 Abdomen 1V Flat [CR] Stat 06/23/20 10:58 CULTURE BLOOD [BC] Stat 06/23/20 11:10 CULTURE BLOOD [BC] Stat 06/23/20 11:41 CULTURE URINE [RM] Stat 06/23/20 11:45 cefTRIAXone [Rocephin] 2 gm Sodium Chloride 0.9% [Normal Saline] 100 ml IV Q24H 06/23/20 12:05 Remove Brownlee Catheter [Urinary Catheter Removal] [RC] PER UNIT ROUTINE 06/23/20 12:29 CULTURE CATHETER TIP [RM] Stat
[2020-06-23] MEDS ORDERED: Ondansetron 4 MG/2 ML SDV IVPUSH ONE (11:06)
[2020-06-23] MEDS ORDERED: cefTRIAXone 2 GM in Sodium Chloride 0.9% 100 ML IV SCH (11:45)
[2020-06-23] MEDS: Dextrose 5%-0.9% NaCl 1,000 ML IV SCH ×2 (12:27→17:43)
[2020-06-23] MEDS ORDERED: Ondansetron 4 MG/2 ML SDV IV PRN (13:10)
--- NOTE | 2020-06-23 13:14 | CR ---
Abdomen: Supine view of the abdomen was obtained. Comparison: No prior abdominal x-ray. Scattered disc space narrowing and degenerative endplate spurring is seen within the spine. Midline surgical clips are seen. Bowel gas pattern is normal. Mild vascular calcification is seen. Impression: 1. Degenerative change as noted above. Skin tamia. 2. Nothing acute seen on supine abdominal x-ray. Diagnostic code #2 This report was dictated in MDT
[2020-06-23] MEDS ORDERED: 50% Dextrose in Water 50 ML Syringe IVPUSH PRN (13:22)
[2020-06-23] MEDS ORDERED: hydrALAZINE 20 MG/ML SDV IVPUSH PRN (13:22)
--- NOTE | 2020-06-23 13:29 | CR ---
Chest: Chest: AP view of the chest was obtained. Comparison: No prior chest x-ray. Heart size is normal. Tortuous thoracic aorta is seen. Lungs show no acute parenchymal change. Degenerative endplate spurring is noted within the spine. Old healed left upper rib fractures are seen. No acute osseous finding is seen. Impression: 1. Nothing acute is appreciated on AP chest x-ray. Diagnostic code #2 This report was dictated in MDT
--- NOTE | 2020-06-23 13:30 | PCM.HP.2 ---
H&P History of Present Illness - General Date of Service: 06/23/20 Admit Problem/Dx: Admission Diagnosis/Problem Admission Diagnosis/Problem Upper urinary tract infection - History of Present Illness Initial Comments - Free Text/Narative: This is an 79 year old male who came to the ED complaining of worsening dysuria. As per patient he underwent spinal stenosis surgery on 06/13, discharged from the hospital in [place] on 06/15. Came home on 06/16 and started having difficulty voiding for which he came to the ED for evaluation at that point he was given Flomax and discharged home. On 06/17 symptoms were not improving and getting worse for which he came back to the ED for evaluation, he was transferred to [place] where a Brownlee catheter was placed and patient was discharged home. He started having intermittent chills, with a fever, fatigue, malaise, decreased oral intake (has been declining steadily since surgery) as well as initial symptoms. Described pain in urethra during voiding, denies hematuria. Did not attempt any treatment at home before coming in. Penis Pain Score (Numeric/FACES): 8 - Related Data Allergies/Adverse Reactions: Allergies Allergy/AdvReac Type Severity Reaction Status Date / Time hydrocodone Allergy Severe Hives Verified 06/23/20 14:05 Home Medications: Home Meds Tamsulosin [Tamsulosin 24 Hr] 0.4 mg PO DAILY #30 cap.er 06/16/20 [Rx] Docusate Sodium [Colace] 0 mg PO ASDIRECTED PRN 06/23/20 [History] Fluticasone Propionate 1 spray NASBOTH ASDIRECTED PRN 06/23/20 [History] Levothyroxine 75 mcg PO DAILY 06/23/20 [History] Losartan Potassium 50 mg PO DAILY 06/23/20 [History] Metoprolol Tartrate 100 mg PO BID 06/23/20 [History] Pravastatin [Pravachol] 40 mg PO DAILY 06/23/20 [History] allopurinoL [Zyloprim] 150 mg PO DAILY 06/23/20 [History] amLODIPine [Norvasc] 5 mg PO DAILY 06/23/20 [History] hydroCHLOROthiazide [Hydrochlorothiazide] 25 mg PO DAILY 06/23/20 [History] metFORMIN [Glucophage] 1,000 mg PO BID 06/23/20 [History] oxyCODONE 5 mg PO ASDIRECTED PRN 06/23/20 [History] Past Medical History HEENT History: Reports: Cataract, Impaired Vision Cardiovascular History: Reports: High Cholesterol, Hypertension Genitourinary History: Reports: BPH, Retention, Urinary Psychiatric History: Reports: Depression Endocrine/Metabolic History: Reports: Diabetes, Type II Oncologic (Cancer) History: Reports: Other (See Below) Other Oncologic History: skin CA Dermatologic History: Reports: Other (See Below) Other Dermatologic History: skin CA - Infectious Disease History Infectious Disease History: Reports: Chicken Pox, Measles, Rubella - Past Surgical History GI Surgical History: Reports: Hernia Repair/Other Musculoskeletal Surgical History: Reports: Knee Replacement, Other (See Below) Other Musculoskeletal Surgeries/Procedures:: lower lumbar surgery for spinal stenosis 06/13/2020 Social & Family History - Family History Family Medical History: Noncontributory - Tobacco Use Smoking Status *Q: Never Smoker Second Hand Smoke Exposure: No - Caffeine Use Caffeine Use: Reports: Coffee - Alcohol Use Days Per Week of Alcohol Use: 7 Number of Drinks Per Day: 2 Total Drinks Per Week: 14 - Recreational Drug Use Recreational Drug Use: No - Living Situation & Occupation Living situation: Reports: , with Family Occupation: Retired H&P Review of Systems - Review of Systems: Review Of Systems: See Below General: Reports: Fever, Chills, Malaise, Weakness, Fatigue, Decreased Appetite. Denies: Night Sweats, Diaphoresis, Weight Loss, Weight Gain HEENT: Denies: Post Nasal Drip, Sinus Congestion, Sore Throat, Vertigo, Visual Changes Pulmonary: Denies: Shortness of Breath, Wheezing, Pleuritic Chest Pain, Cough, Sputum, Hemoptysis Cardiovascular: Denies: Chest Pain, Palpitations, Dyspnea on Exertion, Orthopnea, PND, Edema, Lightheadedness, Syncope, Claudication Gastrointestinal: Reports: Abdominal Pain, Anorexia, Constipation, Decreased Appetite. Denies: Black Stool, Bloody Stool, Diarrhea, Difficulty Swallowing, Distension, Flatus, Nausea Genitourinary: Reports: Dysuria, Pain, Retention. Denies: Frequency, Burning, Urgency, Incontinence, Hematuria, Discharge Musculoskeletal: Denies: Joint Pain, Joint Swelling, Muscle Pain, Muscle Stiffness Skin: Denies: Cyanosis, Jaundice, Mottled, Pallor, Diaphoresis Psychiatric: Reports: Depression, Mood Lability. Denies: Confusion Neurological: Denies: Confusion, Dizziness, Headache, Numbness, Paresthesia Exam - Exam Exam: See Below - Vital Signs Vital Signs: Last Vital Signs Temp 100.4 F 06/23/20 12:32 Pulse 78 06/23/20 10:10 Resp 16 06/23/20 10:10 BP 147/52 H 06/23/20 10:10 Pulse Ox 92 L 06/23/20 10:10 Weight: 68.039 kg - Exam Quality Assessment: Supplemental Oxygen General: Alert, Oriented, Cooperative. No: Mild Distress HEENT: Conjunctiva Clear, EACs Clear, Posterior Pharynx Clear, Pupils Equal, Pupils Reactive Neck: Supple, Trachea Midline, +2 Carotid Pulse wo Bruit, Full Range of Motion. No: Lymphadenopathy Lungs: Clear to Auscultation, Normal Respiratory Effort. No: Crackles, Rales, Rhonchi, Rub, Stridor, Wheezing Cardiovascular: Regular Rate, Regular Rhythm. No: Systolic Murmur, Diastolic Murmur, Rubs, Gallop/S3, Gallop/S4 GI/Abdominal Exam: Normal Bowel Sounds, Soft, Distended, Tender (lower hemiabdomen). No: Guarding, Rigid, Rebound Back Exam: Normal Inspection, CVA Tenderness (L), Other (medial scar over lumbosacral spine with adequate healing, tamia in place, no signs of infection). No: Full Range of Motion, CVA Tenderness (R) Extremities: Normal Inspection, Pedal Edema, Slow Capillary Refill Peripheral Pulses: 2+: Radial (L), Radial (R), Dorsalis Pedis (L), Dorsalis Pedis (R) Skin: Warm, Intact Neuro Extensive - Mental Status: Alert, Oriented x3 Psychiatric: Depressed - Patient Data Result Diagrams: 06/23/20 10:58 06/23/20 10:58 Sepsis Event Note - Evaluation Sepsis Screening Result: No Definite Risk - Problem List (1) Pyelonephritis SNOMED Code(s): 30142514 ICD Code: N12 - TUBULO-INTERSTITIAL NEPHRITIS, NOT SPCF ACUTE OR CHRONIC Status: Acute Current Visit: Yes (2) Leukocytosis SNOMED Code(s): 939086017, 823442226 ICD Code: D72.829 - ELEVATED WHITE BLOOD CELL COUNT, UNSPECIFIED Status: Acute Current Visit: Yes (3) Macrocytic anemia SNOMED Code(s): 66997036 ICD Code: D53.9 - NUTRITIONAL ANEMIA, UNSPECIFIED Status: Acute Current Visit: Yes (4) Thrombocytosis SNOMED Code(s): 1870831 ICD Code: D47.3 - ESSENTIAL (HEMORRHAGIC) THROMBOCYTHEMIA Status: Acute Current Visit: Yes (5) Hyponatremia SNOMED Code(s): 89850490 ICD Code: E87.1 - HYPO-OSMOLALITY AND HYPONATREMIA Status: Acute Current Visit: Yes (6) Hypochloremia SNOMED Code(s): 67292860 ICD Code: E87.8 - OTH DISORDERS OF ELECTROLYTE AND FLUID BALANCE, NEC Status: Acute Current Visit: Yes (7) Hypoalbuminemia SNOMED Code(s): 898407743 ICD Code: E88.09 - OT DISORDERS OF PLASMA-PROTEIN METABOLISM, NEC Status: Acute Current Visit: Yes (8) Chronic kidney disease (CKD), stage III (moderate) SNOMED Code(s): 781373132 ICD Code: N18.3 - CHRONIC KIDNEY DISEASE, STAGE 3 (MODERATE) Status: Acute Current Visit: Yes (9) Diabetes mellitus SNOMED Code(s): 74142930 ICD Code: E11.9 - TYPE 2 DIABETES MELLITUS WITHOUT COMPLICATIONS Status: Acute Current Visit: Yes (10) Hypertension SNOMED Code(s): 77153892 ICD Code: I10 - ESSENTIAL (PRIMARY) HYPERTENSION Status: Acute Current Visit: Yes (11) Dyslipidemia SNOMED Code(s): 892384955 ICD Code: E78.5 - HYPERLIPIDEMIA, UNSPECIFIED Status: Acute Current Visit: Yes (12) Benign prostate hyperplasia SNOMED Code(s): 196740776 ICD Code: N40.0 - BENIGN PROSTATIC HYPERPLASIA WITHOUT LOWER URINRY TRACT SYMP Status: Acute Current Visit: Yes (13) Depression SNOMED Code(s): 21180216 ICD Code: F32.9 - MAJOR DEPRESSIVE DISORDER, SINGLE EPISODE, UNSPECIFIED Status: Acute Current Visit: Yes (14) History of spinal stenosis SNOMED Code(s): 934372939 ICD Code: Z87.39 - PERSONAL HISTORY OF DISEASES OF THE MS SYS AND CONN TISS Status: Acute Current Visit: Yes (15) Decreased oral intake SNOMED Code(s): 316133678 ICD Code: R63.8 - OTHER SYMPTOMS AND SIGNS CONCERNING FOOD AND FLUID INTAKE Status: Acute Current Visit: Yes (16) Constipation SNOMED Code(s): 93500182 ICD Code: K59.00 - CONSTIPATION, UNSPECIFIED Status: Acute Current Visit: Yes (17) Hypothyroidism SNOMED Code(s): 60827754 ICD Code: E03.9 - HYPOTHYROIDISM, UNSPECIFIED Status: Acute Current Visit: Yes (18) Postprocedural urinary retention SNOMED Code(s): 56049685919490323 ICD Code: N99.89 - OTH POSTPROCEDURAL COMPLICATIONS AND DISORDERS OF SYS; R33.8 - OTHER RETENTION OF URINE Status: Acute Current Visit: Yes (19) Urinary retention due to benign prostatic hyperplasia SNOMED Code(s): 601250158, 616325606068827 ICD Code: N40.1 - BENIGN PROSTATIC HYPERPLASIA WITH LOWER URINARY TRACT SYMP; R33.8 - OTHER RETENTION OF URINE Status: Acute Current Visit: No (20) Weakness SNOMED Code(s): 57396163 ICD Code: R53.1 - WEAKNESS Status: Acute Current Visit: No (21) Gout SNOMED Code(s): 51242108 ICD Code: M10.9 - GOUT, UNSPECIFIED Status: Acute Current Visit: Yes Problem List Initiated/Reviewed/Updated: Yes Assessment/Plan Comment:: Pyelonephritis Leukocytosis Multifactorial urinary retention Benign prostate hyperplasia History of spinal stenosis s/p surgical correction on 06/13/20 Dysuria x 2-3 days with malaise, chills and decreased oral intake Brownlee catheter placed after urinary retention during post-op from spinal stenosis correction 06/13 CVA tenderness is equivocal on left, not present on right but patient is post-op--> will treat as pyelonephritis Baseline temperature is 98.4 Pathologic UA from Brownlee present in ED--> Brownlee removed in ED Leukocytosis with left shift, only 1 band on peripheral smear Surgical scars with adequate healing Lactic acid negative, no signs of sepsis at this point PLAN - Rocephin daily - Repeat UA - Orthostatic VS - Panculture if temperature > 100.4 - Scheduled bladder scans Diabetes mellitus, unknown HbA1c Glucose on admission 232 Home management with metformin PLAN - HbA1c - Premeal and 2h post meal glucose checks - Hold metformin - Glargine 3u at bedtime Hypertension, apparently controlled BP on admission 147/52 Home management with amlodipine, losartan, metoprolol and HCTZ PLAN - Hold home medications - PRN Hydralazine Macrocytic anemia Thrombocytosis Hb 8.5 (up from 8.2 on 06/17) with MCV of 100 No signs of blood loss Patient is hemodynamically stable Thrombocytosis likely reactive multifactorial from anemia and infection PLAN - Goal Hb >7 - B12, folic acid, vitamin D, iron panel and reticulocyte count Chronic kidney disease (CKD), stage III (moderate) Previous admits GFR 32 GFR on admission 42 PLAN - Monitor urine output - Renally dosed medications - Monitor labs Dyslipidemia No acute issues PLAN - Hold home statin - Recommend PCP to re-evaluate use as patient is out of window to benefit from u se Decreased oral intake Hypoalbuminemia Weakness Albumin 2.3 PLAN - Dietary evaluation - Vitamin and prealbumin levels ordered Gout No acute issues On allopurinol at home PLAN - Uric acid level Constipation Normally has 2 BMs per day Has been having one every other day since surgery as he is on opioids at home PLAN - Scheduled senna BID - Continue home pain control Hypothyroidism No acute issues PLAN - Hold home levothyroxine Depression 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
[2020-06-23] MEDS ORDERED: oxyCODONE 5 MG Tab PO PRN (14:06)
[2020-06-23 14:16] LABS: HEMOGLOBIN A1C 7.7 % (4.50-6.20)
[2020-06-23 14:18] LABS: VITAMIN D,25-HYDROXY 21.9 ng/ml (30.0-100.0)
[2020-06-23] MEDS: oxyCODONE 5 MG Tab PO PRN (17:39)
[2020-06-23] MEDS: Sodium Chloride 0.9% 1,000 ML IV SCH (18:41)
[2020-06-23] MEDS: Acetaminophen 325 MG Tab PO PRN (20:25)
[2020-06-23] MEDS: Sennosides 8.6 MG Tab PO SCH (20:25)
[2020-06-23] MEDS ORDERED: Insulin Glarg,Human.Rec.Analog 100 Unit/ML SUBCUT SCH (21:00)
[2020-06-24] MEDS: Sodium Chloride 0.9% 1,000 ML IV SCH (09:17)
[2020-06-24] MEDS: Tamsulosin 0.4 MG Cap.ER PO SCH (09:20)
[2020-06-24] MEDS: Sennosides 8.6 MG Tab PO SCH ×2 (09:20→20:34)
--- NOTE | 2020-06-24 09:40 | PCM.PN ---
- General Info Date of Service: 06/24/20 Subjective Update: The patient was seen by me at bedside. This morning he is no longer with fevers or chills. He continues to feel weak. This morning he has been irritated with people coming into room. Since catheter was placed, patient now does not have abdominal pain. He does have left hip/leg and right hip/leg pain that shoots down leg when he lays in certain positions for too long and is requesting pain medications scheduled. Is eating good breakfast without nausea. He does have to be prompted by to keep eating. He had a bowel movement late last night and did not notice any obvious blood. He denies chest pain, denies shortness of breath. He has not been up to walk this AM yet but is without dizziness or light headed while sitting. - Patient Data Vitals - Most Recent: Last Vital Signs Temp 97.9 F 06/24/20 03:29 Pulse 72 06/24/20 03:29 Resp 16 06/24/20 03:29 BP 107/48 L 06/24/20 03:29 Pulse Ox 93 L 06/24/20 03:29 Weight - Most Recent: 157 lb 4.8 oz - Exam General: Alert, Oriented, Cooperative, No Acute Distress HEENT: Pupils Equal, Pupils Reactive, EOMI Lungs: Clear to Auscultation, Normal Respiratory Effort. No: Crackles, Rales, Rhonchi Cardiovascular: Regular Rate, Regular Rhythm. No: Murmurs, Gallops, Rubs GI/Abdominal Exam: Normal Bowel Sounds (Male) Exam: Other (Brownlee catheter in place with 500cc of yellow/clear urine.) Extremities: Normal Inspection, Normal Capillary Refill, Pedal Edema (1+ pretibial edema bilaterally) Skin: Warm, Dry, Intact Neurological: No New Focal Deficit Psy/Mental Status: Alert, Depressed, Agitated Sepsis Event Note - Evaluation Sepsis Screening Result: No Definite Risk - Problem List & Annotations (1) Bacteremia due to Gram-negative bacteria SNOMED Code(s): 927091910427 Code(s): R78.81 - BACTEREMIA Status: Acute Current Visit: Yes (2) Chronic kidney disease (CKD), stage III (moderate) SNOMED Code(s): 781440758 Code(s): N18.3 - CHRONIC KIDNEY DISEASE, STAGE 3 (MODERATE) Status: Acute Current Visit: Yes (3) Constipation SNOMED Code(s): 11079889 Code(s): K59.00 - CONSTIPATION, UNSPECIFIED Status: Acute Current Visit: Yes (4) Vitamin D deficiency SNOMED Code(s): 45641126 Code(s): E55.9 - VITAMIN D DEFICIENCY, UNSPECIFIED Status: Chronic Current Visit: Yes (5) Decreased oral intake SNOMED Code(s): 840046343 Code(s): R63.8 - OTHER SYMPTOMS AND SIGNS CONCERNING FOOD AND FLUID INTAKE Status: Acute Current Visit: Yes (6) Depression SNOMED Code(s): 46209077 Code(s): F32.9 - MAJOR DEPRESSIVE DISORDER, SINGLE EPISODE, UNSPECIFIED Status: Acute Current Visit: Yes (7) Diabetes mellitus SNOMED Code(s): 09325987 Code(s): E11.9 - TYPE 2 DIABETES MELLITUS WITHOUT COMPLICATIONS Status: Acute Current Visit: Yes (8) Gout SNOMED Code(s): 14561145 Code(s): M10.9 - GOUT, UNSPECIFIED Status: Acute Current Visit: Yes (9) History of spinal stenosis SNOMED Code(s): 248912589 Code(s): Z87.39 - PERSONAL HISTORY OF DISEASES OF THE MS SYS AND CONN TISS Status: Acute Current Visit: Yes (10) Hypertension SNOMED Code(s): 44547625 Code(s): I10 - ESSENTIAL (PRIMARY) HYPERTENSION Status: Acute Current Visit: Yes (11) Hypoalbuminemia SNOMED Code(s): 376276829 Code(s): E88.09 - OTH DISORDERS OF PLASMA-PROTEIN METABOLISM, NEC Status: Acute Current Visit: Yes (12) Hypothyroidism SNOMED Code(s): 87604210 Code(s): E03.9 - HYPOTHYROIDISM, UNSPECIFIED Status: Acute Current Visit: Yes (13) Pyelonephritis SNOMED Code(s): 40254577 Code(s): N12 - TUBULO-INTERSTITIAL NEPHRITIS, NOT SPCF ACUTE OR CHRONIC Status: Acute Current Visit: Yes (14) Thrombocytosis SNOMED Code(s): 8318184 Code(s): D47.3 - ESSENTIAL (HEMORRHAGIC) THROMBOCYTHEMIA Status: Acute Current Visit: Yes (15) Urinary retention due to benign prostatic hyperplasia SNOMED Code(s): 883937505, 443105328114056 Code(s): N40.1 - BENIGN PROSTATIC HYPERPLASIA WITH LOWER URINARY TRACT SYMP; R33.8 - OTHER RETENTION OF URINE Status: Acute Current Visit: No (16) Benign prostate hyperplasia SNOMED Code(s): 894957325 Code(s): N40.0 - BENIGN PROSTATIC HYPERPLASIA WITHOUT LOWER URINRY TRACT SYMP Status: Acute Current Visit: Yes - Problem List Review Problem List Initiated/Reviewed/Updated: Yes - Assessment Assessment:: 06/23/20 Dysuria x 2-3 days with malaise, chills and decreased oral intake Brownlee catheter placed after urinary retention during post-op from spinal stenosis correction 06/13 CVA tenderness is equivocal on left, not present on right but patient is p ost-op--> will treat as pyelonephritis Baseline temperature is 98.4 Pathologic UA from Brownlee present in ED--> Brownlee removed in ED Leukocytosis with left shift, only 1 band on peripheral smear Surgical scars with adequate healing Lactic acid negative, no signs of sepsis at this point Glucose on admission 232 BP on admission 147/52 Hb 8.5 (up from 8.2 on 06/17) with MCV of 100 No signs of blood loss Patient is hemodynamically stable Thrombocytosis likely reactive multifactorial from anemia and infection PLAN - Rocephin daily - Repeat UA - Orthostatic VS - Panculture if temperature > 100.4 - Scheduled bladder scans - HbA1c - Premeal and 2h post meal glucose checks - Hold metformin - Glargine 3u at bedtime - PRN Hydralazine - Goal Hb >7 - B12, folic acid, vitamin D, iron panel and reticulocyte count - Monitor urine output - Renally dosed medications - Monitor labs - Hold home statin - Recommend PCP to re-evaluate use as patient is out of window to benefit from use - Dietary evaluation - Vitamin and prealbumin levels ordered - Uric acid level - Scheduled senna BID - Continue home pain control - Hold home levothyroxine - PHQ 9 - Discuss possible psychiatry consult tomorrow Patient will be admitted to medical floor on IV antibiotics and pain control, will repeat UA and urine culture with clean catch sample 06/24/20 Brownlee catheter placed overnight - now no abdominal pain WBC increased to 17.5 from 15.4, Lactic acid negative, remained afebrile for 22 hours, HR controlled, BP stable, RR normal. Urine cultures and blood cultures growing gram negative rods. Glucose this morning 194, after meal 219 Hgb A1c 7.2% BP today 107/48 - 143/42 Hb 6.9 (down from 8.5 yesterday) No obvious signs of blood loss B12 and folate are normal Iron is 13, transferrin is 151 Vitamin D is 21.9 Previous admits GFR 32 GFR now 39 Albumin 2.3 Prealbumin pending. Uric acid level 3.0. Pt had BM overnight PHQ 2 and GAD2 are both 2/2 PHQ9 16 points - Plan Plan:: Bacteremia Pyelonephritis Leukocytosis Multifactorial urinary retention Benign prostate hyperplasia History of spinal stenosis s/p surgical correction on 06/13/20 - Changing from Rocephin to Zosyn 4.5g IV q8h. - Orthostatic VS - Panculture if temperature > 100.4 - Brownlee catheter replaced. Remove tomorrow with post void residual. - Flomax. - Follow up with urology. - Echocardiogram will be followed. Diabetes mellitus, Hgb A1c 7.2 (06/24/2020) - Premeal and 2h post meal glucose checks - Hold metformin - Glargine increasing from 3u at bedtime to 5u at bedtime Hypertension, apparently controlled - Hold home medications - PRN Hydralazine Macrocytic anemia Thrombocytosis - Goal Hb >7 - Stool occult will be collected. - Pt has hemodilution - recheck hgb in AM. - Iron supplementation with ferrous sucrose per pharmacy dosing. Vitamin D deficiency -Starting patient on Vitamin D3 25mcg oral daily. -Follow up with PCP for follow up 25(OH)D level in 3 months. Chronic kidney disease (CKD), stage III (moderate) - Monitor urine output - Renally dosed medications - Monitor labs Dyslipidemia - Hold home statin - Recommend PCP to re-evaluate use as patient is out of window to benefit from use Decreased oral intake Hypoalbuminemia Weakness - Dietary evaluation - supplementation started - Vitamin and prealbumin levels ordered Gout - Hold allopurinol. Constipation - Scheduled senna BID - Continue home pain control Hypothyroidism - Hold home levothyroxine Depression - Psychiatry consult tomorrow AM. PROPHYLAXIS DVT- compression stockings GI- not indicated CODE STATUS: FULL CODE DISPOSITION: Patient's vitals remains stable, pt will remain on med/surg. Changing Rocephin to Zosyn. Will keep close watch for SIRS. Repeat blood cultures in 24-48h. Will remain in house 3-4 days.
[2020-06-24] MEDS ORDERED: Piperacillin/Tazobactam 4.5 GM in Sodium Chloride 0.9% 100 ML IV ONE (10:00)
[2020-06-24] MEDS: oxyCODONE 5 MG Tab PO PRN ×2 (10:05→20:34)
[2020-06-24] MEDS: Cholecalciferol (Vitamin D3) 25 MCG Tab PO SCH (13:15)
[2020-06-24] MEDS: Acetaminophen 325 MG Tab PO PRN (16:57)
[2020-06-24] MEDS: Piperacillin/Tazobactam 4.5 GM in Sodium Chloride 0.9% 100 ML IV SCH (18:30)
[2020-06-24] MEDS: Finasteride 5 MG Tab PO SCH (20:33)
[2020-06-24] MEDS ORDERED: Insulin Glarg,Human.Rec.Analog 100 Unit/ML SUBCUT SCH (21:00)
[2020-06-25] MEDS: Piperacillin/Tazobactam 4.5 GM in Sodium Chloride 0.9% 100 ML IV SCH ×2 (02:29→12:06)
[2020-06-25] MEDS: Acetaminophen 325 MG Tab PO PRN ×2 (02:39→20:37)
[2020-06-25] MEDS: oxyCODONE 5 MG Tab PO PRN ×2 (03:15→18:26)
[2020-06-25] MEDS ORDERED: Potassium Chloride 20 MEQ Tab.ER PO ONE ×2 (07:15→10:30)
[2020-06-25] MEDS ORDERED: Cyclobenzaprine 10 MG Tab PO PRN (07:40)
[2020-06-25] MEDS: Tamsulosin 0.4 MG Cap.ER PO SCH (09:09)
[2020-06-25] MEDS: Sennosides 8.6 MG Tab PO SCH ×2 (09:09→20:32)
[2020-06-25] MEDS: Cholecalciferol (Vitamin D3) 25 MCG Tab PO SCH (09:09)
--- NOTE | 2020-06-25 09:36 | PCM.PN ---
- General Info Date of Service: 06/25/20 Subjective Update: The patient was seen by me at bedside. Patient today is with more energy. His muscle spasms of lower extremities have lessened. Tylenol has controlled leg pain better than previously. He has eaten >50% of all meals. Last BM was about 36 hours ago. He is passing gas. He denies fevers, chills, nausea, vomiting, chest pain, shortness of breath. He does get lightheaded when standing up. Denies dizziness. - Patient Data Vitals - Most Recent: Last Vital Signs Temp 98.1 F 06/25/20 08:47 Pulse 97 06/25/20 08:47 Resp 20 06/25/20 08:47 BP 142/50 H 06/25/20 08:47 Pulse Ox 93 L 06/25/20 08:47 Weight - Most Recent: 160 lb 6.4 oz - Exam General: Alert, Oriented, Cooperative, No Acute Distress HEENT: Pupils Equal, Pupils Reactive, EOMI Neck: Supple, No JVD Lungs: Clear to Auscultation, Normal Respiratory Effort Cardiovascular: Regular Rate, Regular Rhythm, No Murmurs GI/Abdominal Exam: Normal Bowel Sounds, Soft, Non-Tender, No Distention Extremities: Non-Tender, Normal Capillary Refill, Pedal Edema (trace pretibial edema bilaterally) Skin: Warm, Dry, Intact Psy/Mental Status: Alert, Normal Affect, Normal Mood (Pt less depressed today) Sepsis Event Note - Evaluation Sepsis Screening Result: No Definite Risk - Focused Exam Vital Signs: Vital Signs Temp Pulse Resp BP Pulse Ox 06/25/20 08:47 98.1 F 97 20 142/50 H 93 L 06/25/20 05:33 98.2 F 98 16 140/96 H 95 06/25/20 02:36 79 14 161/52 H 95 - Problem List & Annotations (1) Bacteremia due to Gram-negative bacteria SNOMED Code(s): 114223603254 Code(s): R78.81 - BACTEREMIA Status: Acute Current Visit: Yes (2) Chronic kidney disease (CKD), stage III (moderate) SNOMED Code(s): 831129305 Code(s): N18.3 - CHRONIC KIDNEY DISEASE, STAGE 3 (MODERATE) Status: Acute Current Visit: Yes (3) Constipation SNOMED Code(s): 87804924 Code(s): K59.00 - CONSTIPATION, UNSPECIFIED Status: Acute Current Visit: Yes (4) Vitamin D deficiency SNOMED Code(s): 27570087 Code(s): E55.9 - VITAMIN D DEFICIENCY, UNSPECIFIED Status: Chronic Current Visit: Yes (5) Decreased oral intake SNOMED Code(s): 755333995 Code(s): R63.8 - OTHER SYMPTOMS AND SIGNS CONCERNING FOOD AND FLUID INTAKE Status: Acute Current Visit: Yes (6) Depression SNOMED Code(s): 47143924 Code(s): F32.9 - MAJOR DEPRESSIVE DISORDER, SINGLE EPISODE, UNSPECIFIED St atus: Acute Current Visit: Yes (7) Diabetes mellitus SNOMED Code(s): 47492373 Code(s): E11.9 - TYPE 2 DIABETES MELLITUS WITHOUT COMPLICATIONS Status: Acute Current Visit: Yes (8) Gout SNOMED Code(s): 76663673 Code(s): M10.9 - GOUT, UNSPECIFIED Status: Acute Current Visit: Yes (9) History of spinal stenosis SNOMED Code(s): 102709756 Code(s): Z87.39 - PERSONAL HISTORY OF DISEASES OF THE MS SYS AND CONN TISS Status: Acute Current Visit: Yes (10) Hypertension SNOMED Code(s): 59437312 Code(s): I10 - ESSENTIAL (PRIMARY) HYPERTENSION Status: Acute Current Visit: Yes (11) Hypoalbuminemia SNOMED Code(s): 626063184 Code(s): E88.09 - OTH DISORDERS OF PLASMA-PROTEIN METABOLISM, NEC Status: Acute Current Visit: Yes (12) Hypothyroidism SNOMED Code(s): 83222966 Code(s): E03.9 - HYPOTHYROIDISM, UNSPECIFIED Status: Acute Current Visit: Yes (13) Pyelonephritis SNOMED Code(s): 31400966 Code(s): N12 - TUBULO-INTERSTITIAL NEPHRITIS, NOT SPCF ACUTE OR CHRONIC Status: Acute Current Visit: Yes (14) Hypokalemia SNOMED Code(s): 13834044 Code(s): E87.6 - HYPOKALEMIA Status: Acute Current Visit: Yes (15) Thrombocytosis SNOMED Code(s): 3427703 Code(s): D47.3 - ESSENTIAL (HEMORRHAGIC) THROMBOCYTHEMIA Status: Acute Current Visit: Yes (16) Urinary retention due to benign prostatic hyperplasia SNOMED Code(s): 352315877, 459284930402177 Code(s): N40.1 - BENIGN PROSTATIC HYPERPLASIA WITH LOWER URINARY TRACT SYMP; R33.8 - OTHER RETENTION OF URINE Status: Acute Current Visit: No (17) Benign prostate hyperplasia SNOMED Code(s): 918575661 Code(s): N40.0 - BENIGN PROSTATIC HYPERPLASIA WITHOUT LOWER URINRY TRACT SYMP Status: Acute Current Visit: Yes - Problem List Review Problem List Initiated/Reviewed/Updated: Yes - Assessment Assessment:: 06/23/20 Dysuria x 2-3 days with malaise, chills and decreased oral intake Brownlee catheter placed after urinary retention during post-op from spinal stenosis correction 06/13 CVA tenderness is equivocal on left, not present on right but patient is post-op--> will treat as pyelonephritis Baseline temperature is 98.4 Pathologic UA from Brownlee present in ED--> Brownlee removed in ED Leukocytosis with left shift, only 1 band on peripheral smear Surgical scars with adequate healing Lactic acid negative, no signs of sepsis at this point Glucose on admission 232 BP on admission 147/52 Hb 8.5 (up from 8.2 on 06/17) with MCV of 100 No signs of blood loss Patient is hemodynamically stable Thrombocytosis likely reactive multifactorial from anemia and infection PLAN - Rocephin daily - Repeat UA - Orthostatic VS - Panculture if temperature > 100.4 - Scheduled bladder scans - HbA1c - Premeal and 2h post meal glucose checks - Hold metformin - Glargine 3u at bedtime - PRN Hydralazine - Goal Hb >7 - B12, folic acid, vitamin D, iron panel and reticulocyte count - Monitor urine output - Renally dosed medications - Hold home statin - Recommend PCP to re-evaluate use as patient is out of window to benefit from use - Dietary evaluation - Vitamin and prealbumin levels ordered - Uric acid level - Scheduled senna BID - Continue home pain control - Hold home levothyroxine - PHQ 9 06/24/20 Brownlee catheter placed overnight - now no abdominal pain WBC increased to 17.5 from 15.4, Lactic acid negative, remained afebrile for 22 hours, HR controlled, BP stable, RR normal. Urine cultures and blood cultures growing gram negative rods. Glucose this morning 194, after meal 219 Hgb A1c 7.2% BP today 107/48 - 143/42 Hb 6.9 (down from 8.5 yesterday) No obvious signs of blood loss B12 and folate are normal Iron is 13, transferrin is 151 Vitamin D is 21.9 Previous admits GFR 32 GFR now 39 Albumin 2.3 Prealbumin pending. Uric acid level 3.0. Pt had BM overnight PHQ 2 and GAD2 are both 2/2 PHQ9 16/27 points PLAN - Changed from Rocephin to Zosyn 4.5g IV q8h - Brownlee catheter placed overnight - Continue Flomax - Follow up appointment made with urology - Echocardiogram done, results will be followed - Premeal and 2h post meal glucose checks - Holding metformin - Glargine increased from 3u at bedtime to 5u at bedtime - PRN Hydralazine - Goal Hb >7 - Stool occult order placed. - Pt has hemodilution - recheck hgb in AM. - Ferrous sucrose 250mg IV x1. - Started patient on Vitamin D3 25mcg oral daily. - Strict I/Os - Renally dosed medications - Hold home statin - Dietary evaluation - supplementation started - Hold allopurinol. - Scheduled senna BID - Decreased narcotic intake, Tylenol first - Hold home levothyroxine - Psychiatry consult scheduled for 06/25. 06/25/2020 Intake 2760, output 1425, balance + 1.3 L Orthostatics: 163/47 supine, 143/44 sitting, 134/43 standing BP 140-161/50-96 WBC decreased to 10.96 from 17.53, remained afebrile for > 24 hours, HR controlled, BP stable, RR normal. Slide shows toxic granulation of PMNs Urine and blood cultures grew e.coli susceptible to zosyn and rocephin Morning blood glucose is 173, postprandial blood sugars 248 and 323 Potassium is 3.3 Hgb 7.2 from 6.9, platelets 403 down from 406 Creatinine 1.4 down from 1.7 GFR now 49 Prealbumin is 8.1. Last BM on 06/24 at 4AM Patient less depressed than yesterday, more alert. PT recommends home w/ home health, PT/OT - Plan Plan:: Bacteremia Pyelonephritis Leukocytosis Multifactorial urinary retention Benign prostate hyperplasia History of spinal stenosis s/p surgical correction on 06/13/20 - Changing from Zosyn to Rocephin 2g IV q24h, day 3 of antibiotics - Panculture if temperature > 100.4 - Catheter will be removed tomorrow w/ post void residual, bladder scan after. - Flomax. - Decreased narcotic use. - Follow up with urology scheduled for 07/05. - Echocardiogram results pending. - Repeat blood cultures x2 drawn this AM Hypokalemia -KCl 120meq po -Recheck in AM Diabetes mellitus, Hgb A1c 7.2 (06/24/2020) - Premeal and 2h post meal glucose checks - Hold metformin - Continue Glargine 5u at bedtime - Adding Humolog 2units w/ each meal Hypertension - Resume amlodipine 5mg oral daily - Continue holding home losartan and metoprolol tartrate - PRN Hydralazine Macrocytic anemia Thrombocytosis - Goal Hb >7 - Stool occult will be collected. - Recheck hgb in AM. - Pt received 250mg IV ferrous sucrose on 06/24. Vitamin D deficiency -Continue Vitamin D3 25mcg oral daily. -Follow up with PCP for follow up 25(OH)D level in 3 months. Chronic kidney disease (CKD), stage III (moderate) - Monitor urine output - Renally dosed medications - Monitor labs Dyslipidemia - Hold home statin - Recommend PCP to re-evaluate use as patient is out of window to benefit from use Decreased oral intake - improving Hypoalbuminemia Weakness - Dietary started ensure 8oz daily. - Pt will be discharged w/ home health, PT/OT Gout - Continue home allopurinol. Constipation - Scheduled senna BID - Milk of mag w/ prune juice today x1 Hypothyroidism - Continue levothyroxine 75mcg daily. Depression - Dr. Taveras to visit with patient this afternoon. PROPHYLAXIS DVT- compression stockings GI- not indicated CODE STATUS: FULL CODE DISPOSITION: The patient will remain admitted for bacteremia, pyelonephritis. Patient's vitals remains stable. Second set of blood cultures drawn today. IV Rocephin. Expected length of stay is between 2-3 days.
[2020-06-25] MEDS ORDERED: Magnesium Hydroxide 400 MG/5 ML Susp 30 ML Cup PO ONE (09:57)
[2020-06-25] MEDS ORDERED: Magnesium Sulfate/Water 2 GM in Premix Bag 1 BAG IV SCH (10:45)
[2020-06-25] MEDS: amLODIPine 5 MG Tab PO SCH (12:05)
[2020-06-25] MEDS: FLUoxetine 10 MG Cap PO SCH (13:29)
[2020-06-25] MEDS: Insulin Lispro 100 Units/ML 3 ML Vial SUBCUT SCH (17:20)
[2020-06-25] MEDS ORDERED: Lidocaine 2% Jelly 10 ML Urojet MUCMEM PRN (18:42)
[2020-06-25] MEDS ORDERED: cefTRIAXone 2 GM in Sodium Chloride 0.9% 100 ML IV SCH (20:00)
[2020-06-25] MEDS: Finasteride 5 MG Tab PO SCH (20:32)
[2020-06-25] MEDS ORDERED: Insulin Glarg,Human.Rec.Analog 100 Unit/ML SUBCUT SCH (21:00)
[2020-06-26] MEDS ORDERED: Levothyroxine 75 MCG Tab PO SCH (06:00)
[2020-06-26] MEDS: Insulin Lispro 100 Units/ML 3 ML Vial SUBCUT SCH ×3 (08:37→20:23)
[2020-06-26] MEDS: Cholecalciferol (Vitamin D3) 25 MCG Tab PO SCH (08:38)
[2020-06-26] MEDS: Tamsulosin 0.4 MG Cap.ER PO SCH (08:38)
[2020-06-26] MEDS: FLUoxetine 10 MG Cap PO SCH (08:39)
[2020-06-26] MEDS: amLODIPine 5 MG Tab PO SCH (08:39)
[2020-06-26] MEDS: Sennosides 8.6 MG Tab PO SCH (08:43)
[2020-06-26] MEDS: oxyCODONE 5 MG Tab PO PRN (10:26)
[2020-06-26] MEDS ORDERED: Phosphorus #1 250 MG Tab PO ONE (10:43)
--- NOTE | 2020-06-26 14:40 | CONS ---
CONSULTING PHYSICIAN: Yoshi Taveras MD DATE OF CONSULTATION: 06/25/2020 Site where the services are provided is [facility] in [place], [place]. Site where the services are provided from our offices in [facility]. Length of service for this 60-minute inpatient telemedicine event is 60 minutes. IDENTIFICATION: The patient is an 79-year-old male who was admitted to the inpatient med/surg unit at [facility] in [place], [place]. He is seen for psychiatric consultation per the request of staff attending, Dr. Marie, and her treatment team. CHIEF COMPLAINT: "06/13/2020, we had surgery, thought that ended up with an infection in my bladder." HISTORY OF PRESENT ILLNESS: The patient is an 79-year-old male who reports that he had surgery for spinal stenosis, not too long ago, and then he had a complication of developing pain and then subsequently a UTI. He was admitted a few days ago, on 06/23/2020, for treatment of his UTI and he is currently being treated at this point in time for his medical complications. He is being assessed now for depression as he is stating that he has been depressed and discouraged because "every time I think I am getting better, there is another complication." He states "these developments really puts a destin down." He feels that he is more hopeless, and he states "I get very down overall." He states that he has a history of getting down in the past, but it has been worse since his medical issues and he even endorses episodes of crying because she is so frustrated with his current situation. His , who comes in to the interview midway through, is also supporting the idea of the patient being depressed, and she does feel that he needs help with treatment of his depression. The patient does state that he has good sleep pattern, good interest and his appetite is coming back now that he is getting better from the UTI, but while he is somewhat resistant to the idea of taking psychiatric medications, he does feel that overall it will be best for him because he has been pretty down and his certainly feels this way too. PSYCHIATRIC MEDICATIONS AT TIME OF PRESENTATION: None. ALLERGIES: Hydrocodone, which causes. PAST MEDICAL HISTORY: 1. UTI. 2. Status post back surgery secondary to spinal stenosis. REVIEW OF SYSTEMS: Aside from genitourinary and musculoskeletal, all other major organ systems are negative at this point in time for acute difficulties or complications. FAMILY PSYCHIATRIC AND CD HISTORY: The patient denied. PAST PSYCHIATRIC AND CD HISTORY: Essentially negative. The patient has no prior psychiatric history. He does drink 2 beers a day when he is back out in the community, but he has never had any problems with alcoholism. His primary outpatient care provider is Dr. Najera. SOCIAL HISTORY: The patient was born and raised in [place], [place]. He is a former salesman. He is currently . [place] of [place] on [address] MENTAL STATUS EXAM: The patient is an 79-year-old soft-spoken white male in no apparent distress. Speech is of regular rate and rhythm. The patient is cognitively oriented x3. Psychomotor activity is within normal limits. There are no abnormal motor movements or tics observed. Gait steady. Station is normal. Mood is depressed. Affect is consistent with stated mood, restricted but cooperative overall for the purposes of the inpatient consult. There is no behavioral or stated evidence of acute suicidal or homicidal ideation or acute psychotic, delusional, or paranoid symptoms. Thought processes are ruminative, but organized overall. There are no acute manic symptoms or loose associations evident. Judgment and insight appear unimpaired at this point in time. Motivation for help appears good. VITAL SIGNS: 142/50, 97, 20, and 98.1 degrees. IMPRESSION: Pryor I: Major depressive disorder, F32.2. Pryor II: None. Pryor III: 1. Urinary tract infection, which is currently being treated. 2. Status post back surgery for spinal stenosis. Pryor IV: Severe. Pryor V: 55 to 60. PLAN: 1. Begin trial of Prozac 10 mg q.a.m. to help with symptoms of depression. 2. The patient and patient's are apprised of benefits and side effects of the patient's newly initiated psychiatric medication regimen, and they acknowledged their understanding to these facts and had no further questions by the end of the interview session. 3. Other medications as dosed and prescribed by the patient's primary inpatient care medical treatment team. 4. Recommend the patient maintain good hydration status, also help with full function throughout the day. 5. Recommend the patient to follow up with outpatient Psychiatry once he is medically stabilized and discharged back to community, to assess his overall function and efficacy of his newly initiated psychiatric medication regimen. 6. We will follow up with the patient on an as-needed basis while he remains on the inpatient med/surg unit. 7. We will follow up with the patient sooner if any complications in the interim. 8. Crisis plan is in place. ANASTASIA /[id number]
--- NOTE | 2020-06-26 15:19 | PCM.DCSUM1 ---
Discharge Summary - Hospital Course HPI Initial Comments: This is an 79 year old male who came to the ED complaining of worsening dysuria. As per patient he underwent spinal stenosis surgery on 06/13, discharged from the hospital in [place] on 06/15. Came home on 06/16 and started having difficulty voiding for which he came to the ED for evaluation at that point he was given Flomax and discharged home. On 06/17 symptoms were not improving and getting worse for which he came back to the ED for evaluation, he was transferred to [place] where a Veronica catheter was placed and patient was discharged home. He started having intermittent chills, with a fever, fatigue, malaise, decreased oral intake (has been declining steadily since surgery) as well as initial symptoms. Described pain in urethra during voiding, denies hematuria. Did not attempt any treatment at home before coming in. - Discharge Data Discharge Date: 06/26/20 Discharge Disposition: Home, Self-Care 01 Condition: Good - Referral to Home Health Date of Face to Face Encounter: 06/24/20 Reason for Homebound Status: Face to Face meeting with pt and or family. Pt has UTI, Pyelonephritis and recent lumbar surgery. Pt is in need Home Health Care services for; low activity tolerance, functional mobility, standing balance, strength, transfers. Nursing for pain management, vitals, skilled assessment, medication education, disease management. Physical therapy for pt for gait training, therapeutic exercises and safety education. Occupational therapy for ADLs, balance training, caregiver training, functional mobility training, safety education, therapeutic exercises and activities. Pt is currently homebound related to being walker dependent, decreased activity tolerance, and a decreased level of endurance. Pt will be followed by his primary provider, Dr. Najera. Primary Care Physician: Charanjit Najera MD - Discharge Diagnosis/Problem(s) (1) Bacteremia due to Gram-negative bacteria SNOMED Code(s): 388619007742 ICD Code: R78.81 - BACTEREMIA Status: Acute Current Visit: Yes (2) Chronic kidney disease (CKD), stage III (moderate) SNOMED Code(s): 622402430 ICD Code: N18.3 - CHRONIC KIDNEY DISEASE, STAGE 3 (MODERATE) Status: Acute Current Visit: Yes (3) Constipation SNOMED Code(s): 42912419 ICD Code: K59.00 - CONSTIPATION, UNSPECIFIED Status: Acute Current Visit: Yes (4) Vitamin D deficiency SNOMED Code(s): 93763977 ICD Code: E55.9 - VITAMIN D DEFICIENCY, UNSPECIFIED Status: Chronic Current Visit: Yes (5) Decreased oral intake SNOMED Code(s): 945616761 ICD Code: R63.8 - OTHER SYMPTOMS AND SIGNS CONCERNING FOOD AND FLUID INTAKE Status: Acute Current Visit: Yes (6) Depression SNOMED Code(s): 10146375 ICD Code: F32.9 - MAJOR DEPRESSIVE DISORDER, SINGLE EPISODE, UNSPECIFIED Status: Acute Current Visit: Yes (7) Diabetes mellitus SNOMED Code(s): 35199640 ICD Code: E11.9 - TYPE 2 DIABETES MELLITUS WITHOUT COMPLICATIONS Status: Acute Current Visit: Yes (8) Gout SNOMED Code(s): 28518105 ICD Code: M10.9 - GOUT, UNSPECIFIED Status: Acute Current Visit: Yes (9) History of spinal stenosis SNOMED Code(s): 882441158 ICD Code: Z87.39 - PERSONAL HISTORY OF DISEASES OF THE MS SYS AND CONN TISS Status: Acute Current Visit: Yes (10) Hypertension SNOMED Code(s): 26689202 ICD Code: I10 - ESSENTIAL (PRIMARY) HYPERTENSION Status: Acute Current Visit: Yes (11) Hypoalbuminemia SNOMED Code(s): 718761276 ICD Code: E88.09 - OTH DISORDERS OF PLASMA-PROTEIN METABOLISM, NEC Status: Acute Current Visit: Yes (12) Hypothyroidism SNOMED Code(s): 74040490 ICD Code: E03.9 - HYPOTHYROIDISM, UNSPECIFIED Status: Acute Current Visit: Yes (13) Pyelonephritis SNOMED Code(s): 95229491 ICD Code: N12 - TUBULO-INTERSTITIAL NEPHRITIS, NOT SPCF ACUTE OR CHRONIC Status: Acute Current Visit: Yes (14) Hypokalemia SNOMED Code(s): 41205631 ICD Code: E87.6 - HYPOKALEMIA Status: Acute Current Visit: Yes (15) Thrombocytosis SNOMED Code(s): 3180123 ICD Code: D47.3 - ESSENTIAL (HEMORRHAGIC) THROMBOCYTHEMIA Status: Acute Current Visit: Yes (16) Urinary retention due to benign prostatic hyperplasia SNOMED Code(s): 452676542, 666701157388102 ICD Code: N40.1 - BENIGN PROSTATIC HYPERPLASIA WITH LOWER URINARY TRACT SYMP; R33.8 - OTHER RETENTION OF URINE Status: Acute Current Visit: No (17) Benign prostate hyperplasia SNOMED Code(s): 837770262 ICD Code: N40.0 - BENIGN PROSTATIC HYPERPLASIA WITHOUT LOWER URINRY TRACT SYMP Status: Acute Current Visit: Yes (18) Diastolic congestive heart failure SNOMED Code(s): 263288936, 984283567 ICD Code: I50.30 - UNSPECIFIED DIASTOLIC (CONGESTIVE) HEART FAILURE Status: Acute Current Visit: Yes (19) Pulmonary hypertension SNOMED Code(s): 75317266 ICD Code: I27.20 - PULMONARY HYPERTENSION, UNSPECIFIED Status: Acute Current Visit: Yes - Patient Summary/Data Consults: Consultations 06/23/20 13:10 Consult to Case Management/[place] [CONS] Routine OT Evaluation and Treatment [CONS] Routine PT Evaluation and Treatment [CONS] Routine 06/24/20 21:08 Consult to Physician [CONS] Routine Labs Pending at D/C: 06/26/2020 WBC 7.56, no left shift, Pt afebrile >48 hours Echocardiogram shows mild diastolic dysfunction, moderate pulmonary hypertension Hgb 8.5 up from 7.2 Second set of blood cultures negative on first examination Hospital Course: 06/23/20 Dysuria x 2-3 days with malaise, chills and decreased oral intake Veronica catheter placed after urinary retention during post-op from spinal stenosis correction 06/13 CVA tenderness is equivocal on left, not present on right but patient is post-op--> will treat as pyelonephritis Baseline temperature is 98.4 Pathologic UA from Veronica present in ED--> Veronica removed in ED Leukocytosis with left shift, only 1 band on peripheral smear Surgical scars with adequate healing Lactic acid negative, no signs of sepsis at this point Glucose on admission 232 BP on admission 147/52 Hb 8.5 (up from 8.2 on 06/17) with MCV of 100 No signs of blood loss Patient is hemodynamically stable Thrombocytosis likely reactive multifactorial from anemia and infection PLAN - Rocephin daily - Repeat UA - Orthostatic VS - Panculture if temperature > 100.4 - Scheduled bladder scans - HbA1c - Premeal and 2h post meal glucose checks - Hold metformin - Glargine 3u at bedtime - PRN Hydralazine - Goal Hb >7 - B12, folic acid, vitamin D, iron panel and reticulocyte count - Monitor urine output - Renally dosed medications - Hold home statin - Recommend PCP to re-evaluate use as patient is out of window to benefit from use - Dietary evaluation - Vitamin and prealbumin levels ordered - Uric acid level - Scheduled senna BID - Continue home pain control - Hold home levothyroxine - PHQ 9 06/24/20 Veronica catheter placed overnight - now no abdominal pain WBC increased to 17.5 from 15.4, Lactic acid negative, remained afebrile for 22 hours, HR controlled, BP stable, RR normal. Urine cultures and blood cultures growing gram negative rods. Glucose this morning 194, after meal 219 Hgb A1c 7.2% BP today 107/48 - 143/42 Hb 6.9 (down from 8.5 yesterday) No obvious signs of blood loss B12 and folate are normal Iron is 13, transferrin is 151 Vitamin D is 21.9 Previous admits GFR 32 GFR now 39 Albumin 2.3 Prealbumin pending. Uric acid level 3.0. Pt had BM overnight PHQ 2 and GAD2 are both 2/2 PHQ9 points PLAN - Changed from Rocephin to Zosyn 4.5g IV q8h - Veronica catheter placed overnight - Continue Flomax - Follow up appointment made with urology - Echocardiogram done, results will be followed - Premeal and 2h post meal glucose checks - Holding metformin - Glargine increased from 3u at bedtime to 5u at bedtime - PRN Hydralazine - Goal Hb >7 - Stool occult order placed. - Pt has hemodilution - recheck hgb in AM. - Ferrous sucrose 250mg IV x1. - Started patient on Vitamin D3 25mcg oral daily. - Strict I/Os - Renally dosed medications - Hold home statin - Dietary evaluation - supplementation started - Hold allopurinol. - Scheduled senna BID - Decreased narcotic intake, Tylenol first - Hold home levothyroxine - Psychiatry consult scheduled for 06/25. 06/25/2020 Intake 2760, output 1425, balance + 1.3 L Orthostatics: 163/47 supine, 143/44 sitting, 134/43 standing BP 140-161/50-96 WBC decreased to 10.96 from 17.53, remained afebrile for > 24 hours, HR controlled, BP stable, RR normal. Slide shows toxic granulation of PMNs Urine and blood cultures grew e.coli susceptible to zosyn and rocephin Morning blood glucose is 173, postprandial blood sugars 248 and 323 Potassium is 3.3 Hgb 7.2 from 6.9, platelets 403 down from 406 Creatinine 1.4 down from 1.7 GFR now 49 Prealbumin is 8.1. Last BM on 06/24 at 4AM Patient less depressed than yesterday, more alert. PT recommends home w/ home health, PT/OT PLAN - Changed from Zosyn to Rocephin 2g IV q24h, day 3 of antibiotics - Flomax. - Decreased narcotic use. - Follow up with urology scheduled for 07/05. - Echocardiogram results pending. - Repeat blood cultures x2 drawn this AM - KCl 120meq po - Recheck in AM - Premeal and 2h post meal glucose checks - Hold metformin - Continue Glargine 5u at bedtime - Adding Humolog 2units w/ each meal - Resume amlodipine 5mg oral daily - Continue holding home losartan and metoprolol tartrate - PRN Hydralazine - Goal Hb >7 - Stool occult will be collected. - Recheck hgb in AM. - Pt received 250mg IV ferrous sucrose on 06/24. - Continue Vitamin D3 25mcg oral daily. - Monitor urine output - Renally dosed medications - Hold home statin - Recommend PCP to re-evaluate use as patient is out of window to benefit from use - Dietary started ensure 8oz daily. - Scheduled senna BID - Milk of mag w/ prune juice today x1 - Continue levothyroxine 75mcg daily. - Dr. Taveras visited patient, started Prozac 10mg daily. - Patient Instructions Diet: Heart Healthy Diet, Diabetic Diet Activity, Other: Outpatient physical therapy - Discharge Plan *PRESCRIPTION DRUG MONITORING PROGRAM REVIEWED*: Not Applicable *COPY OF PRESCRIPTION DRUG MONITORING REPORT IN PATIENT JUJU: No Prescriptions/Med Rec: FLUoxetine [PROzac] 10 mg PO DAILY #30 cap Sulfamethoxazole/Trimethoprim [Septra DS] 1 tab PO BID 13 Days #26 tablet Home Medications: Home Meds Tamsulosin [Flomax] 0.4 mg PO DAILY #30 cap.er 06/16/20 [Rx] Docusate Sodium [Colace] 100 mg PO ASDIRECTED PRN 06/23/20 [History] Fluticasone Propionate 1 spray NASBOTH BID 06/23/20 [History] Levothyroxine 75 mcg PO DAILY 06/23/20 [History] Losartan Potassium 50 mg PO DAILY 06/23/20 [History] allopurinoL [Zyloprim] 150 mg PO DAILY 06/23/20 [History] amLODIPine [Norvasc] 5 mg PO DAILY 06/23/20 [History] metFORMIN [Glucophage] 1,000 mg PO BID 06/23/20 [History] Cyclobenzaprine [Flexeril] 5 mg PO Q12H PRN tablet 06/26/20 [Rx] FLUoxetine [PROzac] 10 mg PO DAILY #30 cap 06/26/20 [Rx] Sulfamethoxazole/Trimethoprim [Septra DS] 1 tab PO BID 13 Days #26 tablet 06/26/20 [Rx] oxyCODONE 5 mg PO Q6H PRN tablet 06/26/20 [Rx] Patient Handouts: Indwelling Urinary Catheter Care, Adult, Sepsis, Diagnosis, Adult Referrals: Charanjit Najera MD [Primary Care Provider] - (Dr. Najera nurse will be calling you with your hospital follow up appointment. ) Naty Tse NP [Ordering Only Provider] - 07/05/20 10:15 am (Post op appointment scheduled for Wednesday @ 1015 with Naty Breaux,@ [facility]. Contact number is [phone] ) Nolan Quintero MD [Ordering Only Provider] - 07/05/20 11:30 am (Please attend your urology follow up with Dr. Quintero on at 11:30.Please arrive 15 minutes early to appointment. This appointment is central time in and in [place]. ) Yoshi Taveras MD [Physician] - (Please ask your primary care provider for an outpatient follow-up with Dr. Taveras in 2-4 weeks.) - Discharge Summary/Plan Comment DC Time >30 min.: Yes Discharge Summary/Plan Comment: 06/26/2020 Assessment WBC 7.56, no left shift, Pt afebrile >48 hours HR well controlled without beta valerie Blood pressure max 165/46, minimum 134/69 Echocardiogram shows mild diastolic dysfunction, moderate pulmonary hypertension Hgb 8.5 up from 7.2 Second set of blood cultures negative on first examination Plan Discharge on bactrim for 14 days total Restart losartan 50mg oral daily, continue taking amlodipine 5mg oral daily Stop metoprolol tartrate. Prozac 10mg oral daily for depression. Follow up with PCP within 1 week to discuss medication changes Keep veronica catheter. Follow up with urologist on 07/05 - General Info Date of Service: 06/26/20 Subjective Update: The patient today is feeling stronger. He has been able to eat more. He has not had urethral pain today. No abdominal pain, dizziness, shortness of breath, no chest pain. LE leg spasms are better controlled. - Patient Data Vitals - Most Recent: Last Vital Signs Temp 97.9 F 06/26/20 12:56 Pulse 88 06/26/20 12:56 Resp 13 06/26/20 12:56 BP 158/55 H 06/26/20 12:56 Pulse Ox 96 06/26/20 12:56 Orthostatic Blood Pressure [ 134/43 Standing] Orthostatic Blood Pressure [ 143/44 Sitting] Orthostatic Blood Pressure [ 163/47 Supine] Weight - Most Recent: 162 lb 3.2 oz I&O - Last 24 hours: Intake & Output 06/26/20 06/26/20 06/26/20 06:59 14:59 22:59 Intake Total 900 210 Output Total 1000 Balance -100 210 - Exam General: Reports: Alert, Oriented, Cooperative HEENT: Reports: Pupils Equal, Pupils Reactive, EOMI Neck: Reports: Supple, No JVD Lungs: Reports: Clear to Auscultation, Normal Respiratory Effort. Denies: Rales, Rhonchi, Wheezing Cardiovascular: Reports: Regular Rate, Regular Rhythm. Denies: Murmurs GI/Abdominal Exam: Normal Bowel Sounds, Soft, Non-Tender (Male) Exam: Other (catheter present with clear/yellow urine) Skin: Reports: Warm, Dry, Intact Psy/Mental Status: Reports: Alert, Normal Affect, Normal Mood
[2020-06-26] MEDS ORDERED: Sulfamethoxazole/Trimethoprim 800-160 MG Tab PO SCH (21:00)
== END 2020-06-26 16:00 | disposition home or self-care (01) | DRG 699 ==
LOC: SUPCPDRO 10:10 → JD.ED 10:10 → JD.MS 12:30
PROVIDERS: ADMIT Internal Medicine; ATTEND Internal Medicine
DX: N39.0 Urinary tract infection, site not specified (principal); G89.18 Other acute postprocedural pain; K59.01 Slow transit constipation; T83.511A Infection and inflammatory reaction due to indwelling urethral catheter, initial encounter; Z98.890 Other specified postprocedural states; N12 Tubulo-interstitial nephritis, not specified as acute or chronic; H54.7 Unspecified visual loss; E87.1 Hypo-osmolality and hyponatremia; I10 Essential (primary) hypertension; E78.00 Pure hypercholesterolemia, unspecified; N40.1 Benign prostatic hyperplasia with lower urinary tract symptoms; E11.9 Type 2 diabetes mellitus without complications; N99.89 Other postprocedural complications and disorders of genitourinary system; R33.8 Other retention of urine; Z88.6 Allergy status to analgesic agent; F32.9 Major depressive disorder, single episode, unspecified; Z20.828 Contact with and (suspected) exposure to other viral communicable diseases; D53.9 Nutritional anemia, unspecified; D47.3 Essential (hemorrhagic) thrombocythemia; E87.8 Other disorders of electrolyte and fluid balance, not elsewhere classified; N18.3 Chronic kidney disease, stage 3 (moderate); I12.9 Hypertensive chronic kidney disease with stage 1 through stage 4 chronic kidney disease, or unspecified chronic kidney disease; E11.22 Type 2 diabetes mellitus with diabetic chronic kidney disease; E78.5 Hyperlipidemia, unspecified; K59.00 Constipation, unspecified; M10.9 Gout, unspecified; Z96.659 Presence of unspecified artificial knee joint; E87.6 Hypokalemia; E03.9 Hypothyroidism, unspecified; B96.89 Other specified bacterial agents as the cause of diseases classified elsewhere; E55.9 Vitamin D deficiency, unspecified; Z88.5 Allergy status to narcotic agent; Z79.890 Hormone replacement therapy; Z79.84 Long term (current) use of oral hypoglycemic drugs; Z79.899 Other long term (current) drug therapy; Z85.828 Personal history of other malignant neoplasm of skin
CPT/HCPCS: 36415; 51702; 71045; 71045-26; 74018; 74018-26; 80048; 80053; 81001; 82272; 82306; 82570; 82607; 82746; 82962; 83036; 83540; 83605; 83735; 83880; 84100; 84134; 84145; 84156; 84466; 84484; 84550; 85007; 85025; 85027; 85045; 86140; 87040; 87077; 87086; 87088; 87186; 93005; 93010; 93306; 96374; 96375; 97110-GP; 97116-GP; 97162-GP; 97165-GO; 97530-GO; 97530-GP; 97535-GO; 99222; 99232; 99239; 99285; 99285-25; A9270-GY; J0696; J1815-GY; J2405; J2543; J2916; J3475; J7030; J7042; J7050; Q3014; U0002

== ENCOUNTER 2021-03-22 09:43 | Emergency (ER) | payer MEDICARE, OTHER ==
[2021-03-22] MEDS ORDERED: Sodium Chloride 0.9% 10 ML Syringe FLUSH PRN (10:17)
[2021-03-22] MEDS ORDERED: Sodium Chloride 0.9% 1,000 ML IV ONE (11:20)
--- NOTE | 2021-03-22 12:15 | EDM.PDOC ---
ED HPI GENERAL MEDICAL PROBLEM - General Chief Complaint: General Stated Complaint: NECK SWELLING POST SURGERY 1 WEEK AGO Time Seen by Provider: 03/22/21 09:58 Source of Information: Reports: Patient History Limitations: Reports: No Limitations - History of Present Illness INITIAL COMMENTS - FREE TEXT/NARRATIVE: The patient presents with right neck swelling. On 03/13/21 the patient had a right carotidendarterectomy by Dr Stack at [place]. The procedure went good and he did fine. Last night he noticed more swelling to the incision site. He has no drainage or pain. He has a little sore throat but that has been present since the procedure from intubation he thinks. He has no fever, chills, cough, congestion, runny nose, chest pain, shortness of breath, abdominal pain, nausea or vomiting. He has no headache, numbness or weakness. Onset: Gradual Duration: Day(s): (last night) Location: Reports: Neck Improves with: Reports: None Worsens with: Reports: None Associated Symptoms: Reports: No Other Symptoms - Related Data Allergies Allergy/AdvReac Type Severity Reaction Status Date / Time hydrocodone Allergy Intermediate Hives Verified 03/22/21 09:53 Home Meds: Home Meds Levothyroxine 75 mcg PO DAILY 06/23/20 [History] Losartan Potassium 50 mg PO DAILY 06/23/20 [History] allopurinoL [Zyloprim] 150 mg PO DAILY 06/23/20 [History] amLODIPine [Norvasc] 5 mg PO DAILY 06/23/20 [History] metFORMIN [Glucophage] 1,000 mg PO BID 06/23/20 [History] FLUoxetine [PROzac] 10 mg PO DAILY #30 cap 06/26/20 [Rx] Rosuvastatin [Crestor] 20 mg PO DAILY 03/22/21 [History] Tamsulosin [Flomax] 0.4 mg PO BID 03/22/21 [History] hydroCHLOROthiazide [Hydrochlorothiazide] 25 mg PO DAILY 03/22/21 [History] Past Medical History HEENT History: Reports: Cataract, Impaired Vision Cardiovascular History: Reports: High Cholesterol, Hypertension Genitourinary History: Reports: BPH, Retention, Urinary Other Genitourinary History: one kidneylost function d/t kidney stones years ago Psychiatric History: Reports: Depression Endocrine/Metabolic History: Reports: Diabetes, Type II Oncologic (Cancer) History: Reports: Other (See Below) Other Oncologic History: skin CA Dermatologic History: Reports: Other (See Below) Other Dermatologic History: skin CA - Infectious Disease History Infectious Disease History: Reports: Chicken Pox, Measles, Rubella - Past Surgical History Cardiovascular Surgical History: Reports: Carotid Endarterectomy GI Surgical History: Reports: Hernia Repair/Other Musculoskeletal Surgical History: Reports: Knee Replacement, Other (See Below) Other Musculoskeletal Surgeries/Procedures:: lower lumbar surgery for spinal stenosis 06/13/2020 Social & Family History - Family History Family Medical History: No Pertinent Family History - Tobacco Use Tobacco Use Status *Q: Never Tobacco User Second Hand Smoke Exposure: No - Caffeine Use Caffeine Use: Reports: Coffee - Recreational Drug Use Recreational Drug Use: No - Living Situation & Occupation Living situation: Reports: , with Family Occupation: Retired ED ROS GENERAL - Review of Systems Review Of Systems: See Below Constitutional: Reports: No Symptoms HEENT: Reports: No Symptoms Respiratory: Reports: No Symptoms Cardiovascular: Reports: No Symptoms Endocrine: Reports: No Symptoms GI/Abdominal: Reports: No Symptoms : Reports: No Symptoms Musculoskeletal: Reports: No Symptoms ED EXAM, GENERAL - Physical Exam Exam: See Below Exam Limited By: No Limitations General Appearance: Alert, No Apparent Distress Ears: Normal External Exam Nose: Normal Inspection Head: Atraumatic, Normocephalic Neck: Other (Right incision scar with no erythema or drainage. There is some edema to the site but not more then normal.) Respiratory/Chest: No Respiratory Distress, Lungs Clear, Normal Breath Sounds Cardiovascular: Regular Rate, Rhythm, No Edema, No Murmur GI/Abdominal: Soft, Non-Tender, No Organomegaly, No Mass Course - Vital Signs Last Recorded V/S: Last Vital Signs Temp 97.8 F 03/22/21 09:50 Pulse 9 L 03/22/21 09:50 Resp 16 03/22/21 09:50 BP 159/52 H 03/22/21 09:50 Pulse Ox 95 03/22/21 09:50 - Orders/Labs/Meds Orders: Active Orders 24 hr Category Date Time Status Cardiac Monitoring [RC] . DIRECTED Care 03/22/21 10:17 Active Peripheral IV Care [RC] . DIRECTED Care 03/22/21 10:18 Active Ang Neck [CT] Stat Exams 03/22/21 10:18 Taken Sodium Chloride 0.9% [Normal Saline] 1,000 ml Med 03/22/21 11:20 Active IV ONETIME Sodium Chloride 0.9% [Saline Flush] Med 03/22/21 10:17 Active 10 ml FLUSH ASDIRECTED PRN Peripheral IV Insertion Adult [OM.PC] Stat Oth 03/22/21 10:17 Ordered Medication Orders Sodium Chloride (Normal Saline) 1,000 mls @ 1,000 mls/hr IV ONETIME ONE Stop: 03/22/21 12:19 Last Admin: 03/22/21 11:25 Dose: 1,000 mls/hr Documented by: GI Sodium Chloride (Sodium Chloride 0.9% 10 Ml Syringe) 10 ml FLUSH ASDIRECTED PRN PRN Reason: Keep Vein Open Last Admin: 03/22/21 10:26 Dose: 10 ml Documented by: JUANI Labs: Laboratory Tests 03/22/21 03/22/21 Range/Units 10:25 10:25 WBC 6.72 (4.23-9.07) K/mm3 RBC 3.31 L (4.63-6.08) M/mm3 Hgb 10.4 L D (13.7-17.5) gm/dl Hct 32.9 L (40.1-51.0) % MCV 99.4 H (79.0-92.2) fl MCH 31.4 (25.7-32.2) pg MCHC 31.6 L (32.2-35.5) g/dl RDW Std Deviation 50.2 H (35.1-43.9) fL Plt Count 288 D (163-337) K/mm3 MPV 8.0 L (9.4-12.3) fl Neut % (Auto) 63.2 (34.0-67.9) % Lymph % (Auto) 20.7 L (21.8-53.1) % [place] % (Auto) 13.8 H (5.3-12.2) % Eos % (Auto) 1.9 (0.8-7.0) Baso % (Auto) 0.4 (0.1-1.2) % Neut # (Auto) 4.24 (1.78-5.38) K/mm3 Lymph # (Auto) 1.39 (1.32-3.57) K/mm3 [place] # (Auto) 0.93 H (0.30-0.82) K/mm3 Eos # (Auto) 0.13 (0.04-0.54) K/mm3 Baso # (Auto) 0.03 (0.01-0.08) K/mm3 Sodium 138 (136-145) mEq/L Potassium 4.8 (3.5-5.1) mEq/L Chloride 101 (98-107) mEq/L Carbon Dioxide 25 (21-32) mEq/L Anion Gap 16.8 H (5-15) BUN 44 H (7-18) mg/dL Creatinine 1.8 H (0.7-1.3) mg/dL Est Cr Clr Drug Dosing 30.61 mL/min Estimated GFR (MDRD) 36 (>60) mL/min BUN/Creatinine Ratio 24.4 H (14-18) Glucose 322 H (70-99) mg/dL Calcium 8.6 (8.5-10.1) mg/dL Total Bilirubin 0.4 (0.2-1.0) mg/dL AST 14 L (15-37) U/L ALT 23 (16-63) U/L Alkaline Phosphatase 73 (46-116) U/L Total Protein 7.0 (6.4-8.2) g/dl Albumin 3.2 L (3.4-5.0) g/dl Globulin 3.8 gm/dL Albumin/Globulin Ratio 0.8 L (1-2) Meds: Medications Generic Name Dose Route Start Last Admin Trade Name Freq PRN Reason Stop Dose Admin Sodium Chloride 1,000 mls @ 1,000 mls/hr 03/22/21 11:20 03/22/21 11:25 Normal Saline IV 03/22/21 12:19 1,000 mls/hr ONETIME ONE Administration Sodium Chloride 10 ml 03/22/21 10:17 03/22/21 10:26 Sodium Chloride 0.9% 10 Ml Syringe FLUSH 10 ml ASDIRECTED PRN Administration Keep Vein Open - Re-Assessments/Exams Free Text/Narrative Re-Assessment/Exam: 03/22/21 12:15 I ordered an IV saline lock, labs and a CT angio of his neck. His Hgb was low at 10.4. His anion gap was elevated at 16.8. His creatinine was elevated at 1.8. His glucose was 322. The CT angio of his neck shows postoperative change at the carotid bifurcation on the right compatible with recent endarterectomy. Small amount of subcutaneous emphysema in fluid present. There is no abscess. 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 Correlation with prior imaging studies suggested to see if this is a new finding. I sent the CT to Dr Stack. I will discharge him home. 03/22/21 12:18 I did order a liter of fluid to protect his kidneys from the contrast dye. Departure - Departure Time of Disposition: 12:18 Disposition: Home, Self-Care 01 Condition: Good Clinical Impression: Renal insufficiency - Discharge Information *PRESCRIPTION DRUG MONITORING PROGRAM REVIEWED*: Not Applicable *COPY OF PRESCRIPTION DRUG MONITORING REPORT IN PATIENT JUJU: Not Applicable Referrals: Charanjit Najera MD [Primary Care Provider] - 1 Week Additional Instructions: Drink plenty of fluids. Take your medications as prescribed. Call Dr Grewal's office on Wednesday. I sen the CT to him. He can take a look at it. Please return if you are worse. Sepsis Event Note (ED) - Evaluation Sepsis Screening Result: No Definite Risk - Focused Exam Vital Signs: Vital Signs Temp Pulse Resp BP Pulse Ox 03/22/21 09:50 97.8 F 9 L 16 159/52 H 95 - My Orders Last 24 Hours: My Active Orders 03/22/21 10:17 Cardiac Monitoring [RC] . DIRECTED Sodium Chloride 0.9% [Saline Flush] 10 ml FLUSH ASDIRECTED PRN Peripheral IV Insertion Adult [OM.PC] Stat 03/22/21 10:18 Peripheral IV Care [RC] . DIRECTED Ang Neck [CT] Stat 03/22/21 11:20 Sodium Chloride 0.9% [Normal Saline] 1,000 ml IV ONETIME - Assessment/Plan Last 24 Hours: My Active Orders 03/22/21 10:17 Cardiac Monitoring [RC] . DIRECTED Sodium Chloride 0.9% [Saline Flush] 10 ml FLUSH ASDIRECTED PRN Peripheral IV Insertion Adult [OM.PC] Stat 03/22/21 10:18 Peripheral IV Care [RC] . DIRECTED Ang Neck [CT] Stat 03/22/21 11:20 Sodium Chloride 0.9% [Normal Saline] 1,000 ml IV ONETIME
--- NOTE | 2021-03-24 10:30 | CT ---
CT angiogram of neck Technique: Multiple axial sections through the neck were obtained. Intravenous contrast was utilized in the arterial phase. Multiple MIP images were then obtained. Comparison: No prior angiogram of neck is available. Findings: Right side: Soft tissue swelling is noted on the right side compatible with previous surgery. Right common carotid artery shows no focal stenosis. Right internal carotid artery is widely patent. No focal stenosis is seen. No dissection is noted. Right vertebral artery appears occluded but is reconstituted distally with a dominant left vertebral artery being seen. Focal defect is seen within the proximal external carotid artery compatible with plaque. Left side: Common carotid artery shows no stenosis. Mild atheromatous irregularity is noted within the left internal carotid artery. Left vertebral artery is patent. No focal stenosis or dissection is seen. External carotid artery appears to be patent. Impression: 1. Soft tissue swelling and soft tissue air around the right carotid artery compatible with previous surgery. 2. Focal plaque within the proximal right external carotid artery. No plaque is seen within the left external carotid artery. 3. Mild atheromatous irregularity within the proximal internal carotid artery on the left side. 4. 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 5. No additional occlusion, stenosis or dissection is seen. Diagnostic code #3 I minimally disagree with preliminary report from [facility], finalized on , 12:50 PM CDT, code 2
== END 2021-03-22 12:27 | disposition home or self-care (01) ==
LOC: JD.ED 09:43
DX: N28.9 Disorder of kidney and ureter, unspecified (principal); E78.00 Pure hypercholesterolemia, unspecified; I10 Essential (primary) hypertension; E11.9 Type 2 diabetes mellitus without complications; N40.0 Benign prostatic hyperplasia without lower urinary tract symptoms; Z79.84 Long term (current) use of oral hypoglycemic drugs; Z79.899 Other long term (current) drug therapy; Z88.5 Allergy status to narcotic agent
CPT/HCPCS: 36415; 70498; 80053; 85025; 99284; J7030

== ENCOUNTER 2023-07-10 17:32 | Emergency (ER) | payer MEDICARE, BC ==
[2023-07-10] MEDS ORDERED: Acetaminophen/HYDROcodone 325-5 MG Tab PO ONE (19:44)
== END 2023-07-10 21:00 | disposition home or self-care (01) ==
LOC: JD.ED 17:32
DX: S20.223A Contusion of bilateral back wall of thorax, initial encounter (principal); E78.00 Pure hypercholesterolemia, unspecified; I12.9 Hypertensive chronic kidney disease with stage 1 through stage 4 chronic kidney disease, or unspecified chronic kidney disease; N18.9 Chronic kidney disease, unspecified; E11.22 Type 2 diabetes mellitus with diabetic chronic kidney disease; Z87.891 Personal history of nicotine dependence; Z79.84 Long term (current) use of oral hypoglycemic drugs; Z79.899 Other long term (current) drug therapy; W18.30XA Fall on same level, unspecified, initial encounter; Y92.009 Unspecified place in unspecified non-institutional (private) residence as the place of occurrence of the external cause
CPT/HCPCS: 71046; 72072; 99283; A9270

== ENCOUNTER 2023-11-04 06:55 | Day surgery (SDC) | payer MEDICARE, BC ==
[~2023-11-04 06:55] MED LIST: Lactated Ringers 1,000 ML IV SCH; Sodium Chloride 0.9% 10 ML Syringe FLUSH PRN; Sodium Chloride 0.9% 10 ML Syringe FLUSH SCH
[2023-11-04] MEDS ORDERED: Midazolam 1 MG/ML 2 ML SDV ONE (07:07)
[2023-11-04] MEDS ORDERED: Lidocaine 1% 8 ML ONE (07:07)
[2023-11-04] MEDS ORDERED: fentaNYL 100 MCG/2 ML SDV ONE (07:07)
[2023-11-04] MEDS ORDERED: Ropivacaine 0.5% 5 MG/ML 30 ML SDV ONE (08:06)
[2023-11-04] MEDS ORDERED: dexmedeTOMIDine HCl 200 MCG/2 ML SDV ONE (08:06)
[2023-11-04] MEDS ORDERED: Propofol 200 MG/20 ML SDV ONE (08:10)
[2023-11-04] MEDS ORDERED: Dexamethasone 4 MG/ML 5 ML MDV ONE (08:35)
[2023-11-04] MEDS ORDERED: ceFAZolin 2 GM Vial ONE (08:49)
== END 2023-11-04 12:26 | disposition home or self-care (01) ==
LOC: JD.SDS 06:55
PROVIDERS: ATTEND Podiatrist Foot & Ankle Surgery
DX: M20.5X1 Other deformities of toe(s) (acquired), right foot (principal); M20.41 Other hammer toe(s) (acquired), right foot; L97.519 Non-pressure chronic ulcer of other part of right foot with unspecified severity; I12.9 Hypertensive chronic kidney disease with stage 1 through stage 4 chronic kidney disease, or unspecified chronic kidney disease; E78.2 Mixed hyperlipidemia; N18.4 Chronic kidney disease, stage 4 (severe); I73.9 Peripheral vascular disease, unspecified; E03.9 Hypothyroidism, unspecified; Z79.890 Hormone replacement therapy; Z79.899 Other long term (current) drug therapy; I70.1 Atherosclerosis of renal artery; E11.22 Type 2 diabetes mellitus with diabetic chronic kidney disease; Z88.5 Allergy status to narcotic agent; Z98.890 Other specified postprocedural states; Z87.891 Personal history of nicotine dependence
CPT/HCPCS: 28285; 28291; 76000; J0690; J1100; J2250; J2704; J2795; J3010; J7120; J3490

== ENCOUNTER 2023-11-13 11:16 | Emergency (ER) | payer MEDICARE, BC ==
[2023-11-13] MEDS ORDERED: Sodium Chloride 0.9% 10 ML Syringe FLUSH PRN (11:53)
[2023-11-13] MEDS ORDERED: Ketorolac 15 MG/ML SDV IVPUSH ONE (11:56)
[2023-11-13 12:18] LABS: BASOPHILS PERCENT AUTO 0.3 % (0.0-1.0); EOSINOPHILS ABSOLUTE AUTO 0.2 K/mm3 (0.0-0.4); EOSINOPHILS PERCENT AUTO 2.7 % (0.0-6.0); HEMATOCRIT 26.3 % (42.0-52.0); HEMOGLOBIN 8.5 gm/dl (14.0-18.0); IMMATURE GRAN ABSOLUTE AUTO 0.04 K/mm3 (0.00-0.05); IMMATURE GRAN PERCENT AUTO 0.5 % (0.0-0.4); LYMPHOCYTES ABSOLUTE AUTO 0.6 K/mm3 (1.0-4.8); LYMPHOCYTES PERCENT AUTO 7.3 % (24.0-44.0); MEAN CORPUSCULAR HEMOGLOBIN 33.1 pg (28.0-32.0); MEAN CORPUSCULAR HGB CONC 32.3 g/dl (32.0-36.0); MEAN CORPUSCULAR VOLUME 102.3 fl (83.0-99.0); MEAN PLATELET VOLUME 8.4 fl (9.4-12.4); MONOCYTES ABSOLUTE AUTO 0.9 K/mm3 (0.0-0.8); MONOCYTES PERCENT AUTO 11.8 % (0.0-8.0); NEUTROPHILS ABSOLUTE AUTO 5.9 K/mm3 (1.8-7.7); NEUTROPHILS PERCENT AUTO 77.4 % (41.0-71.0); PLATELET COUNT,PLT 224 K/mm3 (150-400); RED BLOOD CELL COUNT 2.57 M/mm3 (4.52-5.90); WHITE BLOOD CELL COUNT,WBC 7.68 K/mm3 (3.9-11.3)
[2023-11-13 12:53] LABS: A/G RATIO 0.5 (1-2); ALBUMIN 2.1 g/dl (3.4-5.0); BILIRUBIN TOTAL 0.4 mg/dL (0.2-1.0); CALCIUM 8.4 mg/dL (8.5-10.1); EST CRCL DRUG DOSING (CG) 13.06 mL/min; PROTEIN TOTAL,TP 6.7 g/dl (6.4-8.2)
[2023-11-13] MEDS ORDERED: Albuterol 0.083% 2.5 MG/3 ML Neb Soln NEB ONE (13:53)
[2023-11-13] MEDS ORDERED: Sodium Chloride 0.9% 1,000 ML IV SCH (14:45)
[2023-11-13 14:55] LABS: CORONAVIRUS COVID-19 NAA NEGATIVE (NEGATIVE); INFLUENZA A NAA NEGATIVE (NEGATIVE); RESPIRATORY SYNCYTIAL VIR NAA NEGATIVE (NEGATIVE)
[2023-11-13] MEDS ORDERED: Heparin Sodium 5,000 Units/ML Vial IVPUSH ONE (16:18)
[2023-11-13] MEDS ORDERED: Heparin Sodium/D5W 25,000 UNITS/500 ML BAG IV SCH (16:30)
== END 2023-11-13 17:38 ==
LOC: JD.ED 11:16
DX: E87.1 Hypo-osmolality and hyponatremia (principal); E11.22 Type 2 diabetes mellitus with diabetic chronic kidney disease; I12.9 Hypertensive chronic kidney disease with stage 1 through stage 4 chronic kidney disease, or unspecified chronic kidney disease; N18.4 Chronic kidney disease, stage 4 (severe); D63.1 Anemia in chronic kidney disease; R09.02 Hypoxemia; R80.9 Proteinuria, unspecified; E78.00 Pure hypercholesterolemia, unspecified; M19.90 Unspecified osteoarthritis, unspecified site; Z79.82 Long term (current) use of aspirin; Z79.899 Other long term (current) drug therapy; Z20.822 Contact with and (suspected) exposure to COVID-19; Z88.5 Allergy status to narcotic agent
CPT/HCPCS: 0241U; 36415; 70450; 71045; 72125; 80053; 83880; 84484; 85025; 85379; 86140; 93005; 93970; 94640; 96361; 96365; 96375; 99285; J1644; J1885; J3490; J7030; J7620-GY

== ENCOUNTER 2024-04-08 16:05 | Inpatient (IN) | payer MEDICARE, BC ==
[2024-04-08] MEDS: Sodium Chloride 0.9% 1,000 ML IV SCH (17:30)
[2024-04-08 17:36] LABS: BASOPHILS PERCENT AUTO 0.5 % (0.0-1.0); EOSINOPHILS ABSOLUTE AUTO 0.1 K/mm3 (0.0-0.4); EOSINOPHILS PERCENT AUTO 1.8 % (0.0-6.0); HEMATOCRIT 29.6 % (42.0-52.0); HEMOGLOBIN 9.7 gm/dl (14.0-18.0); IMMATURE GRAN ABSOLUTE AUTO 0.03 K/mm3 (0.00-0.05); IMMATURE GRAN PERCENT AUTO 0.5 % (0.0-0.4); LYMPHOCYTES ABSOLUTE AUTO 1.4 K/mm3 (1.0-4.8); LYMPHOCYTES PERCENT AUTO 21.1 % (24.0-44.0); MEAN CORPUSCULAR HEMOGLOBIN 34.4 pg (28.0-32.0); MEAN CORPUSCULAR HGB CONC 32.8 g/dl (32.0-36.0); MEAN PLATELET VOLUME 8.8 fl (9.4-12.4); MONOCYTES ABSOLUTE AUTO 0.7 K/mm3 (0.0-0.8); MONOCYTES PERCENT AUTO 9.9 % (0.0-8.0); NEUTROPHILS ABSOLUTE AUTO 4.4 K/mm3 (1.8-7.7); NEUTROPHILS PERCENT AUTO 66.2 % (41.0-71.0); PLATELET COUNT,PLT 187 K/mm3 (150-400); RED BLOOD CELL COUNT 2.82 M/mm3 (4.52-5.90); WHITE BLOOD CELL COUNT,WBC 6.59 K/mm3 (3.9-11.3)
[2024-04-08] MEDS: diphenhydrAMINE 50 MG/ML SDV IVPUSH ONE (17:51)
[2024-04-08 17:52] LABS: A/G RATIO 0.9 (1-2); ALBUMIN 3.2 g/dl (3.4-5.0); ANION GAP 15.6 (5-15); BILIRUBIN TOTAL 0.5 mg/dL (0.2-1.0); BUN/CREATININE RATIO 25.9 (14-18); C-REACTIVE PROTEIN 0.5 mg/dL (<0.30); CALCIUM 8.4 mg/dL (8.5-10.1); CREATININE 4.1 mg/dL (0.7-1.3); EST CRCL DRUG DOSING (CG) 12.25 mL/min; MAGNESIUM 2.5 mg/dL (1.8-2.4); POTASSIUM,K 4.6 mEq/L (3.5-5.1); PROTEIN TOTAL,TP 6.6 g/dl (6.4-8.2)
[2024-04-08] MEDS: Propofol 200 MG/20 ML SDV IVPUSH ONE (17:54)
[2024-04-08] MEDS: Metoclopramide 10 MG/2 ML SDV IVPUSH ONE (17:59)
[2024-04-08] MEDS: HYDROmorphone 0.5 MG/0.5 ML Syringe IVPUSH ONE ×4 (18:05→20:43)
[2024-04-08 18:26] LABS: INR 1.05; PROTHROMBIN TIME 11.2 SECONDS (9.7-12.0)
[2024-04-08 18:27] LABS: PTT,PARTIAL THROMBOPLSTIN TIME 29.9 SECONDS (21.7-31.4)
[2024-04-08] MEDS: LORazepam 2 MG/ML SDV IVPUSH ONE (20:43)
[2024-04-08] MEDS: Gabapentin 100 MG Cap PO ONE (20:43)
[2024-04-08] MEDS ORDERED: HYDROmorphone 0.5 MG/0.5 ML Syringe IVPUSH PRN (21:04)
[2024-04-09] MEDS: Tamsulosin 0.4 MG Cap.ER PO ONE (01:07)
[2024-04-09] MEDS: Sodium Bicarbonate 650 MG Tab PO SCH ×3 (01:08→20:41)
[2024-04-09] MEDS: traMADol 50 MG Tab PO ONE (01:10)
[2024-04-09] MEDS: cloNIDine 0.1 MG Tab PO SCH ×2 (01:11→20:41)
[2024-04-09] MEDS: Furosemide 20 MG Tab PO SCH ×2 (01:11→07:25)
[2024-04-09] MEDS: Rosuvastatin 10 MG Tab PO SCH ×2 (01:11→20:42)
[2024-04-09 01:58] LABS: APPEARANCE,URINE CLEAR (Clear); BILIRUBIN,URINE NEGATIVE (Negative); COLOR,URINE LIGHT YELLOW (Yellow); GLUCOSE,URINE 2+ (Negative); KETONES,URINE NEGATIVE (Negative); LEUKOCYTE ESTERASE,URINE NEGATIVE (Negative); NITRITE,URINE NEGATIVE (Negative); OCCULT BLOOD,URINE NEGATIVE (Negative); PROTEIN,URINE TRACE (Negative); UROBILINOGEN,URINE 0.2 (0.2-1.0)
[2024-04-09 02:21] LABS: BACTERIA,URINE RARE /hpf (FEW); EPITHELIAL CELLS,URINE NOT SEEN /hpf (0-5); HYALINE CASTS,URINE 0-5 /lpf (0-5); MUCUS,URINE NOT SEEN /hpf (FEW); RBC,URINE 0-5 /hpf (0-5); WBC,URINE 0-5 /hpf (0-5)
[2024-04-09] MEDS: HYDROmorphone 0.5 MG/0.5 ML Syringe IVPUSH PRN (03:04)
[2024-04-09] MEDS: oxyCODONE ER 20 MG TAB.ER PO SCH (08:38)
[2024-04-09] MEDS: Insulin Lispro 100 Unit/ML 3 ML KwikPen SUBCUT SCH (11:02)
[2024-04-09] MEDS: HYDROmorphone 1 MG/ML Syringe IVPUSH PRN (12:23)
[2024-04-09] MEDS: LORazepam 2 MG/ML SDV IVPUSH ONE (14:12)
[2024-04-09] MEDS ORDERED: LORazepam 2 MG/ML SDV IVPUSH PRN (14:58)
[2024-04-09] MEDS: Heparin Sodium 5,000 Units/ML Vial SUBCUT SCH (20:33)
[2024-04-09] MEDS: Pramipexole 0.5 MG Tab PO SCH (20:41)
[2024-04-09] MEDS: Tamsulosin 0.4 MG Cap.ER PO SCH (20:42)
[2024-04-10 05:39] LABS: HEMATOCRIT 29.4 % (42.0-52.0); HEMOGLOBIN 9.3 gm/dl (14.0-18.0); MEAN CORPUSCULAR HEMOGLOBIN 33.5 pg (28.0-32.0); MEAN CORPUSCULAR HGB CONC 31.6 g/dl (32.0-36.0); MEAN CORPUSCULAR VOLUME 105.8 fl (83.0-99.0); MEAN PLATELET VOLUME 8.5 fl (9.4-12.4); PLATELET COUNT,PLT 152 K/mm3 (150-400); RED BLOOD CELL COUNT 2.78 M/mm3 (4.52-5.90); WHITE BLOOD CELL COUNT,WBC 9.05 K/mm3 (3.9-11.3)
[2024-04-10 06:50] LABS: ANION GAP 15.1 (5-15); BUN/CREATININE RATIO 25.9 (14-18); CALCIUM 7.9 mg/dL (8.5-10.1); CREATININE 2.9 mg/dL (0.7-1.3); EST CRCL DRUG DOSING (CG) 17.41 mL/min; PHOSPHORUS 4.5 mg/dL (2.6-4.7); POTASSIUM,K 4.1 mEq/L (3.5-5.1); TSH 3.426 uIU/mL (0.358-3.74)
[2024-04-10 06:52] LABS: FOLIC ACID 41.5 ng/mL (8.6-58.9)
[2024-04-10] MEDS ORDERED: Rosuvastatin 10 MG Tab PO SCH (09:00)
[2024-04-10] MEDS: Calcitriol 0.25 MCG Cap PO SCH (09:44)
[2024-04-10] MEDS: Allopurinol 300 MG Tab PO SCH (09:45)
[2024-04-10] MEDS: Ferrous Sulfate 324 MG Tab.EC PO SCH (09:45)
[2024-04-10] MEDS: Finasteride 5 MG Tab PO SCH (09:46)
[2024-04-10] MEDS: Levothyroxine 75 MCG Tab PO SCH (09:46)
[2024-04-10] MEDS: cloNIDine 0.1 MG Tab PO SCH (09:46)
[2024-04-10] MEDS: amLODIPine 10 MG Tab PO SCH (09:46)
[2024-04-10] MEDS: FLUoxetine 10 MG Cap PO SCH (09:47)
[2024-04-10] MEDS: Furosemide 20 MG Tab PO SCH (09:50)
[2024-04-10] MEDS ORDERED: Polyethylene Glycol 3350 Powder 17 GM Packet PO PRN (10:13)
[2024-04-10] MEDS ORDERED: Ondansetron 4 MG/2 ML SDV IV PRN (10:13)
[2024-04-10] MEDS: Non-Formulary Medication 1 Each (Semaglutide [Rybelsus] 3 MG Tablet) PO SCH (11:11)
[2024-04-10] MEDS ORDERED: Propofol 200 MG/20 ML SDV ONE (11:25)
[2024-04-10] MEDS ORDERED: dexmedeTOMIDine HCl 200 MCG/2 ML SDV ONE (11:26)
[2024-04-10] MEDS ORDERED: fentaNYL 100 MCG/2 ML SDV ONE (11:27)
[2024-04-10] MEDS ORDERED: Lactated Ringers 1,000 ML ONE (12:17)
[2024-04-10] MEDS ORDERED: fentaNYL 100 MCG/2 ML SDV IVPUSH PRN (13:01)
[2024-04-10] MEDS: oxyCODONE 5 MG Tab PO PRN (18:23)
[2024-04-10] MEDS: Acetaminophen 325 MG Tab PO PRN (20:06)
[2024-04-11 04:53] LABS: BASOPHILS PERCENT AUTO 0.6 % (0.0-1.0); EOSINOPHILS ABSOLUTE AUTO 0.2 K/mm3 (0.0-0.4); EOSINOPHILS PERCENT AUTO 2.6 % (0.0-6.0); HEMATOCRIT 30.2 % (42.0-52.0); HEMOGLOBIN 9.6 gm/dl (14.0-18.0); IMMATURE GRAN ABSOLUTE AUTO 0.03 K/mm3 (0.00-0.05); IMMATURE GRAN PERCENT AUTO 0.4 % (0.0-0.4); LYMPHOCYTES ABSOLUTE AUTO 0.9 K/mm3 (1.0-4.8); LYMPHOCYTES PERCENT AUTO 12.5 % (24.0-44.0); MEAN CORPUSCULAR HGB CONC 31.8 g/dl (32.0-36.0); MEAN CORPUSCULAR VOLUME 107.1 fl (83.0-99.0); MEAN PLATELET VOLUME 8.9 fl (9.4-12.4); MONOCYTES ABSOLUTE AUTO 0.9 K/mm3 (0.0-0.8); MONOCYTES PERCENT AUTO 12.2 % (0.0-8.0); NEUTROPHILS ABSOLUTE AUTO 5.1 K/mm3 (1.8-7.7); NEUTROPHILS PERCENT AUTO 71.7 % (41.0-71.0); PLATELET COUNT,PLT 151 K/mm3 (150-400); RED BLOOD CELL COUNT 2.82 M/mm3 (4.52-5.90); WHITE BLOOD CELL COUNT,WBC 7.05 K/mm3 (3.9-11.3)
[2024-04-11 05:16] LABS: A/G RATIO 0.7 (1-2); ALBUMIN 2.5 g/dl (3.4-5.0); ANION GAP 15.8 (5-15); BILIRUBIN TOTAL 0.8 mg/dL (0.2-1.0); BUN/CREATININE RATIO 26.2 (14-18); CALCIUM 8.3 mg/dL (8.5-10.1); CREATININE 2.6 mg/dL (0.7-1.3); EST CRCL DRUG DOSING (CG) 19.42 mL/min; MAGNESIUM 2.1 mg/dL (1.8-2.4); POTASSIUM,K 3.8 mEq/L (3.5-5.1); PROTEIN TOTAL,TP 6.1 g/dl (6.4-8.2)
[2024-04-11] MEDS: Docusate Sodium 100 MG Cap PO PRN (06:28)
[2024-04-11] MEDS: Cyclobenzaprine 10 MG Tab PO PRN (08:03)
[2024-04-11] MEDS: Furosemide 40 MG/4 ML VIAL IVPUSH ONE (10:23)
[2024-04-12 05:47] LABS: A/G RATIO 0.6 (1-2); ALBUMIN 2.3 g/dl (3.4-5.0); ANION GAP 15.6 (5-15); BASOPHILS PERCENT AUTO 0.8 % (0.0-1.0); BILIRUBIN TOTAL 0.6 mg/dL (0.2-1.0); BUN/CREATININE RATIO 26.8 (14-18); CALCIUM 8.2 mg/dL (8.5-10.1); CREATININE 2.8 mg/dL (0.7-1.3); EOSINOPHILS ABSOLUTE AUTO 0.2 K/mm3 (0.0-0.4); EOSINOPHILS PERCENT AUTO 5.1 % (0.0-6.0); EST CRCL DRUG DOSING (CG) 18.03 mL/min; HEMATOCRIT 28.8 % (42.0-52.0); HEMOGLOBIN 9.3 gm/dl (14.0-18.0); LYMPHOCYTES ABSOLUTE AUTO 0.6 K/mm3 (1.0-4.8); LYMPHOCYTES PERCENT AUTO 15.4 % (24.0-44.0); MAGNESIUM 2.1 mg/dL (1.8-2.4); MEAN CORPUSCULAR HEMOGLOBIN 33.9 pg (28.0-32.0); MEAN CORPUSCULAR HGB CONC 32.3 g/dl (32.0-36.0); MEAN CORPUSCULAR VOLUME 105.1 fl (83.0-99.0); MEAN PLATELET VOLUME 9.1 fl (9.4-12.4); MONOCYTES ABSOLUTE AUTO 0.6 K/mm3 (0.0-0.8); MONOCYTES PERCENT AUTO 16.2 % (0.0-8.0); NEUTROPHILS ABSOLUTE AUTO 2.3 K/mm3 (1.8-7.7); NEUTROPHILS PERCENT AUTO 62.5 % (41.0-71.0); PLATELET COUNT,PLT 147 K/mm3 (150-400); POTASSIUM,K 3.6 mEq/L (3.5-5.1); RED BLOOD CELL COUNT 2.74 M/mm3 (4.52-5.90)
[2024-04-13 05:47] LABS: BASOPHILS PERCENT AUTO 0.4 % (0.0-1.0); EOSINOPHILS ABSOLUTE AUTO 0.3 K/mm3 (0.0-0.4); EOSINOPHILS PERCENT AUTO 5.5 % (0.0-6.0); HEMATOCRIT 28.7 % (42.0-52.0); HEMOGLOBIN 9.1 gm/dl (14.0-18.0); IMMATURE GRAN ABSOLUTE AUTO 0.02 K/mm3 (0.00-0.05); IMMATURE GRAN PERCENT AUTO 0.4 % (0.0-0.4); LYMPHOCYTES ABSOLUTE AUTO 1.1 K/mm3 (1.0-4.8); LYMPHOCYTES PERCENT AUTO 22.3 % (24.0-44.0); MEAN CORPUSCULAR HEMOGLOBIN 33.1 pg (28.0-32.0); MEAN CORPUSCULAR HGB CONC 31.7 g/dl (32.0-36.0); MEAN CORPUSCULAR VOLUME 104.4 fl (83.0-99.0); MEAN PLATELET VOLUME 9.1 fl (9.4-12.4); MONOCYTES ABSOLUTE AUTO 0.8 K/mm3 (0.0-0.8); MONOCYTES PERCENT AUTO 15.4 % (0.0-8.0); NEUTROPHILS ABSOLUTE AUTO 2.8 K/mm3 (1.8-7.7); PLATELET COUNT,PLT 157 K/mm3 (150-400); RED BLOOD CELL COUNT 2.75 M/mm3 (4.52-5.90); WHITE BLOOD CELL COUNT,WBC 4.94 K/mm3 (3.9-11.3)
[2024-04-13 05:50] LABS: A/G RATIO 0.6 (1-2); ALBUMIN 2.4 g/dl (3.4-5.0); ANION GAP 12.3 (5-15); BILIRUBIN TOTAL 0.5 mg/dL (0.2-1.0); CALCIUM 8.2 mg/dL (8.5-10.1); CREATININE 2.8 mg/dL (0.7-1.3); EST CRCL DRUG DOSING (CG) 18.03 mL/min; MAGNESIUM 2.1 mg/dL (1.8-2.4); POTASSIUM,K 3.3 mEq/L (3.5-5.1); PROTEIN TOTAL,TP 6.2 g/dl (6.4-8.2)
[2024-04-13] MEDS ORDERED: Potassium Chloride 10 MEQ in Premix Bag 1 BAG IV SCH (07:15)
[2024-04-13] MEDS: Haloperidol Lactate 5 MG/ML SDV IVPUSH ONE (07:28)
[2024-04-13] MEDS: Haloperidol Lactate 5 MG/ML SDV ONE (07:35)
[2024-04-13] MEDS: Cyclobenzaprine 10 MG Tab PO ONE (08:31)
[2024-04-13] MEDS: Sodium Chloride 0.9% 1,000 ML IV SCH (08:38)
[2024-04-13] MEDS: Potassium Chloride 10 MEQ in Premix Bag 1 BAG IV SCH (08:39)
[2024-04-13] MEDS: oxyCODONE 5 MG Tab PO PRN ×2 (09:24→15:59)
[2024-04-13] MEDS: Menthol 10%/Methyl Salicylate 30% 85 GM Tube TOP PRN (10:17)
[2024-04-13] MEDS: Gabapentin 100 MG Cap PO SCH (11:07)
[2024-04-13] MEDS ORDERED: Sodium Chloride 0.9% 1,000 ML IV SCH (14:00)
[2024-04-14 06:58] LABS: BASOPHILS PERCENT AUTO 0.5 % (0.0-1.0); EOSINOPHILS ABSOLUTE AUTO 0.1 K/mm3 (0.0-0.4); EOSINOPHILS PERCENT AUTO 2.3 % (0.0-6.0); HEMATOCRIT 27.8 % (42.0-52.0); HEMOGLOBIN 9.1 gm/dl (14.0-18.0); IMMATURE GRAN ABSOLUTE AUTO 0.04 K/mm3 (0.00-0.05); IMMATURE GRAN PERCENT AUTO 0.6 % (0.0-0.4); LYMPHOCYTES ABSOLUTE AUTO 0.9 K/mm3 (1.0-4.8); LYMPHOCYTES PERCENT AUTO 14.2 % (24.0-44.0); MEAN CORPUSCULAR HEMOGLOBIN 33.6 pg (28.0-32.0); MEAN CORPUSCULAR HGB CONC 32.7 g/dl (32.0-36.0); MEAN CORPUSCULAR VOLUME 102.6 fl (83.0-99.0); MEAN PLATELET VOLUME 8.8 fl (9.4-12.4); MONOCYTES ABSOLUTE AUTO 0.8 K/mm3 (0.0-0.8); MONOCYTES PERCENT AUTO 13.4 % (0.0-8.0); NEUTROPHILS ABSOLUTE AUTO 4.3 K/mm3 (1.8-7.7); PLATELET COUNT,PLT 174 K/mm3 (150-400); RED BLOOD CELL COUNT 2.71 M/mm3 (4.52-5.90)
[2024-04-14 07:53] LABS: A/G RATIO 0.6 (1-2); ALBUMIN 2.4 g/dl (3.4-5.0); ANION GAP 15.6 (5-15); BILIRUBIN TOTAL 0.7 mg/dL (0.2-1.0); BUN/CREATININE RATIO 25.2 (14-18); CALCIUM 8.4 mg/dL (8.5-10.1); CREATININE 2.7 mg/dL (0.7-1.3); EST CRCL DRUG DOSING (CG) 18.7 mL/min; MAGNESIUM 1.9 mg/dL (1.8-2.4); POTASSIUM,K 3.6 mEq/L (3.5-5.1); PROTEIN TOTAL,TP 6.2 g/dl (6.4-8.2)
[2024-04-15 05:57] LABS: BASOPHILS PERCENT AUTO 0.4 % (0.0-1.0); EOSINOPHILS ABSOLUTE AUTO 0.2 K/mm3 (0.0-0.4); EOSINOPHILS PERCENT AUTO 2.5 % (0.0-6.0); HEMATOCRIT 28.5 % (42.0-52.0); HEMOGLOBIN 9.5 gm/dl (14.0-18.0); IMMATURE GRAN ABSOLUTE AUTO 0.03 K/mm3 (0.00-0.05); IMMATURE GRAN PERCENT AUTO 0.4 % (0.0-0.4); LYMPHOCYTES PERCENT AUTO 11.7 % (24.0-44.0); MEAN CORPUSCULAR HEMOGLOBIN 34.1 pg (28.0-32.0); MEAN CORPUSCULAR HGB CONC 33.3 g/dl (32.0-36.0); MEAN CORPUSCULAR VOLUME 102.2 fl (83.0-99.0); MEAN PLATELET VOLUME 8.9 fl (9.4-12.4); MONOCYTES ABSOLUTE AUTO 1.1 K/mm3 (0.0-0.8); NEUTROPHILS ABSOLUTE AUTO 6.1 K/mm3 (1.8-7.7); PLATELET COUNT,PLT 183 K/mm3 (150-400); RED BLOOD CELL COUNT 2.79 M/mm3 (4.52-5.90); WHITE BLOOD CELL COUNT,WBC 8.39 K/mm3 (3.9-11.3)
[2024-04-15 06:02] LABS: ANION GAP 10.6 (5-15); BUN/CREATININE RATIO 25.4 (14-18); CALCIUM 8.5 mg/dL (8.5-10.1); CREATININE 2.6 mg/dL (0.7-1.3); EST CRCL DRUG DOSING (CG) 19.42 mL/min; POTASSIUM,K 3.6 mEq/L (3.5-5.1)
[2024-04-15] MEDS: Metoprolol Tartrate 25 MG Tab PO SCH (22:03)
[2024-04-16 05:43] LABS: BASOPHILS PERCENT AUTO 0.5 % (0.0-1.0); EOSINOPHILS ABSOLUTE AUTO 0.3 K/mm3 (0.0-0.4); EOSINOPHILS PERCENT AUTO 3.3 % (0.0-6.0); HEMATOCRIT 29.8 % (42.0-52.0); HEMOGLOBIN 9.8 gm/dl (14.0-18.0); IMMATURE GRAN ABSOLUTE AUTO 0.04 K/mm3 (0.00-0.05); IMMATURE GRAN PERCENT AUTO 0.5 % (0.0-0.4); LYMPHOCYTES ABSOLUTE AUTO 1.4 K/mm3 (1.0-4.8); LYMPHOCYTES PERCENT AUTO 17.6 % (24.0-44.0); MEAN CORPUSCULAR HEMOGLOBIN 34.3 pg (28.0-32.0); MEAN CORPUSCULAR HGB CONC 32.9 g/dl (32.0-36.0); MEAN CORPUSCULAR VOLUME 104.2 fl (83.0-99.0); MEAN PLATELET VOLUME 8.8 fl (9.4-12.4); NEUTROPHILS ABSOLUTE AUTO 5.3 K/mm3 (1.8-7.7); NEUTROPHILS PERCENT AUTO 66.1 % (41.0-71.0); PLATELET COUNT,PLT 195 K/mm3 (150-400); RED BLOOD CELL COUNT 2.86 M/mm3 (4.52-5.90); WHITE BLOOD CELL COUNT,WBC 7.97 K/mm3 (3.9-11.3)
[2024-04-16 06:04] LABS: ANION GAP 11.5 (5-15); BUN/CREATININE RATIO 27.1 (14-18); CALCIUM 8.6 mg/dL (8.5-10.1); CREATININE 2.4 mg/dL (0.7-1.3); EST CRCL DRUG DOSING (CG) 21.04 mL/min; POTASSIUM,K 3.5 mEq/L (3.5-5.1)
[2024-04-16] MEDS: SEMAGLUTIDE 7 MG PO SCH (08:16)
[2024-04-16] MEDS: DAPAGLIFLOZIN 10 MG PO SCH (08:16)
[2024-04-17 05:42] LABS: BASOPHILS PERCENT AUTO 0.4 % (0.0-1.0); EOSINOPHILS ABSOLUTE AUTO 0.3 K/mm3 (0.0-0.4); EOSINOPHILS PERCENT AUTO 3.5 % (0.0-6.0); HEMATOCRIT 30.1 % (42.0-52.0); HEMOGLOBIN 9.8 gm/dl (14.0-18.0); IMMATURE GRAN ABSOLUTE AUTO 0.06 K/mm3 (0.00-0.05); IMMATURE GRAN PERCENT AUTO 0.8 % (0.0-0.4); LYMPHOCYTES ABSOLUTE AUTO 1.5 K/mm3 (1.0-4.8); LYMPHOCYTES PERCENT AUTO 21.4 % (24.0-44.0); MEAN CORPUSCULAR HEMOGLOBIN 33.2 pg (28.0-32.0); MEAN CORPUSCULAR HGB CONC 32.6 g/dl (32.0-36.0); MEAN PLATELET VOLUME 8.8 fl (9.4-12.4); MONOCYTES ABSOLUTE AUTO 0.9 K/mm3 (0.0-0.8); MONOCYTES PERCENT AUTO 12.9 % (0.0-8.0); NEUTROPHILS ABSOLUTE AUTO 4.4 K/mm3 (1.8-7.7); PLATELET COUNT,PLT 217 K/mm3 (150-400); RED BLOOD CELL COUNT 2.95 M/mm3 (4.52-5.90); WHITE BLOOD CELL COUNT,WBC 7.14 K/mm3 (3.9-11.3)
[2024-04-17 05:57] LABS: ANION GAP 9.3 (5-15); BUN/CREATININE RATIO 28.3 (14-18); CALCIUM 8.5 mg/dL (8.5-10.1); CREATININE 2.3 mg/dL (0.7-1.3); EST CRCL DRUG DOSING (CG) 21.95 mL/min; POTASSIUM,K 3.3 mEq/L (3.5-5.1)
[2024-04-17] MEDS: Potassium Chloride 10 MEQ in Premix Bag 1 BAG IV SCH (08:33)
[2024-04-17] MEDS: Sodium Chloride 0.9% 500 ML IV ONE (08:34)
== END 2024-04-17 10:46 | DRG 563 ==
LOC: JD.ED 16:05 → JD.MS 20:30
PROVIDERS: ADMIT Internal Medicine; ATTEND Internal Medicine
PROC: 0T9B70Z Drainage of Bladder with Drainage Device, Via Natural or Artificial Opening (ICD-10-PCS; 2024-04-09)
PROC: 0QSGXZZ Reposition Right Tibia, External Approach (ICD-10-PCS; principal; 2024-04-17)
PROC: 2W6QXZZ Traction of Right Lower Leg (ICD-10-PCS; 2024-04-17)
DX: S82.841A Displaced bimalleolar fracture of right lower leg, initial encounter for closed fracture (principal); S93.421A Sprain of deltoid ligament of right ankle, initial encounter; F05 Delirium due to known physiological condition; G62.9 Polyneuropathy, unspecified; I12.9 Hypertensive chronic kidney disease with stage 1 through stage 4 chronic kidney disease, or unspecified chronic kidney disease; N18.9 Chronic kidney disease, unspecified; M19.90 Unspecified osteoarthritis, unspecified site; N17.9 Acute kidney failure, unspecified; E11.9 Type 2 diabetes mellitus without complications; I13.0 Hypertensive heart and chronic kidney disease with heart failure and stage 1 through stage 4 chronic kidney disease, or unspecified chronic kidney disease; N18.4 Chronic kidney disease, stage 4 (severe); Z79.890 Hormone replacement therapy; I50.32 Chronic diastolic (congestive) heart failure; X58.XXXA Exposure to other specified factors, initial encounter; Z66 Do not resuscitate; I73.9 Peripheral vascular disease, unspecified; H54.7 Unspecified visual loss; E78.00 Pure hypercholesterolemia, unspecified; E11.22 Type 2 diabetes mellitus with diabetic chronic kidney disease; E11.42 Type 2 diabetes mellitus with diabetic polyneuropathy; E11.51 Type 2 diabetes mellitus with diabetic peripheral angiopathy without gangrene; F32.A Depression, unspecified; Z96.659 Presence of unspecified artificial knee joint; N40.1 Benign prostatic hyperplasia with lower urinary tract symptoms; D64.89 Other specified anemias; D63.1 Anemia in chronic kidney disease; R33.8 Other retention of urine; E03.9 Hypothyroidism, unspecified; I25.2 Old myocardial infarction; Z88.8 Allergy status to other drugs, medicaments and biological substances; Z79.82 Long term (current) use of aspirin; Z79.899 Other long term (current) drug therapy; Z98.49 Cataract extraction status, unspecified eye; Z98.890 Other specified postprocedural states
CPT/HCPCS: 27788; 36415; 71045; 73590; 73600; 73610; 80053; 83036; 83735; 83880; 84484; 85025; 85610; 85730; 86140; 86850; 86900; 86901; 93005; 96374; 96375; 96376; 99152; 99285; J1170 ×3; J1200; J2704; J2765; J7030; 01480; 51701; 51702; 51798; 70450; 70450-26; 76000; 76000-26; 80048; 81001; 82607; 82746; 82947; 84100; 84443; 85027; 87641; 93010; 93306; 93880; 93880-26; 94760; 94761; 94762; 97110-GP; 97161-GP; 99100; 99222; 99232; 99233; 99239; 99284; A9270-GY; C1758; J1630; J1644; J1815; J1940; J2060; J3010; J3480; J3490; J7040; J7120; U0002

== ENCOUNTER → 2024-04-20 | Day surgery (SDC) | payer MEDICARE, BC ==
[~2024-04-20] MED LIST changes: +Dexamethasone 4 MG/ML 5 ML MDV ONE; +HYDROmorphone 0.5 MG/0.5 ML Syringe IVPUSH PRN; -Lactated Ringers 1,000 ML IV SCH; +Ondansetron 4 MG/2 ML SDV IVPUSH PRN; +Ondansetron 4 MG/2 ML SDV ONE; +Propofol 200 MG/20 ML SDV ONE; +Ropivacaine 0.5% 5 MG/ML 30 ML SDV ONE; +ceFAZolin 2 GM Vial ONE; +fentaNYL 100 MCG/2 ML SDV IVPUSH PRN; +fentaNYL 100 MCG/2 ML SDV ONE
[2024-04-20] MEDS: Lactated Ringers 1,000 ML IV SCH (06:30)
== END | disposition home or self-care (01) ==
LOC: JD.SDS 06:00
PROVIDERS: ATTEND Orthopaedic Surgery
DX: S82.841A Displaced bimalleolar fracture of right lower leg, initial encounter for closed fracture (principal); R55 Syncope and collapse; E03.9 Hypothyroidism, unspecified; I25.10 Atherosclerotic heart disease of native coronary artery without angina pectoris; I12.9 Hypertensive chronic kidney disease with stage 1 through stage 4 chronic kidney disease, or unspecified chronic kidney disease; N18.9 Chronic kidney disease, unspecified; E11.22 Type 2 diabetes mellitus with diabetic chronic kidney disease; E11.42 Type 2 diabetes mellitus with diabetic polyneuropathy; N17.9 Acute kidney failure, unspecified; D63.1 Anemia in chronic kidney disease; N40.1 Benign prostatic hyperplasia with lower urinary tract symptoms; R33.9 Retention of urine, unspecified; F32.A Depression, unspecified; M19.90 Unspecified osteoarthritis, unspecified site; Z98.49 Cataract extraction status, unspecified eye; Z88.5 Allergy status to narcotic agent; Z79.890 Hormone replacement therapy; Z79.82 Long term (current) use of aspirin; Z79.899 Other long term (current) drug therapy; W19.XXXA Unspecified fall, initial encounter; Z96.659 Presence of unspecified artificial knee joint
CPT/HCPCS: 27814; 27829; 76000; C1713; C1776; J0690; J1100; J2405; J2704; J2795; J3010; J7120; 01480